=== PATIENT | male | born 1960 | race Caucasian/White ===

== ENCOUNTER → 2017-07-22 | Outpatient (CLI) | payer MEDICARE, OTHER ==
[~2017-07-22] MED LIST: BAYER PO; CALCIUM PO; DOXYCYCLINE HY100 MG PO; DOXYCYCLINE PO; IBUPROFEN400 MG PO; IRON PO; LOSARTAN POTAS100 MG PO; LOSARTAN-HCTZ1 EAC2 PO; MULTI-VITAMIN1 EACH PO; NITROFURANTOIN100 MG PO; NORTRIPTYLINE H25 MG PO; NUEDEXTA 20-101 EACH PO; NYQUIL D COLD177 ML PO; TUSSIN COUGH15 MG PO; VITAMIN B-12 PO; VITAMIN B-121000 MCG PO; VOLTAREN100 GM TOP; [UNRECOGNIZED DRUG - OTHER] PO; [UNRECOGNIZED DRUG - OTHER] PO; [UNRECOGNIZED DRUG - REMARK] PO
--- NOTE | 2017-07-22 08:37 | Diagnostic Imaging Report ---
PROCEDURE:US RETROPERITONEAL ( KIDNEY ). COMPARISON:None. INDICATIONS:Neuromuscular Dysfunction Of Bladder TECHNIQUE: Madden-scale and color sonographic images of the bilateral kidneys and bladder where obtained in transverse and longitudinal planes. FINDINGS: RIGHT KIDNEY: 12 cm in length, cortical thickness 1.8 cm. Cysts: None Solid masses: None Stones: None Hydronephrosis: None Echogenicity: Normal renal cortical echogenicity. LEFT KIDNEY: 11.9 cm in length, cortical thickness 2.1 cm. Cysts: None Solid masses: None Stones: None Hydronephrosis: None. Mild left pelviectasis described on the comparison examination has resolved. Echogenicity: Normal renal cortical echogenicity. Bladder: Incompletely distended with stable mild wall thickening. Right and left ureteral jets are identified. Prostate: 3.4 x 3.4 x 3.6 cm,, estimated volume 22 cc. CONCLUSION: Stable mild bladder wall thickening in keeping with history of neurogenic bladder. Unremarkable sonographic appearance of the kidneys. Dictated by: Braden Thakur M.D. on 07/22/2017 at 8:46 Electronically approved by: Braden Thakur M.D. on 07/22/2017 at 8:46
== END ==
LOC: US 07:42
PROVIDERS: ATTEND Urology
DX: N31.9 Neuromuscular dysfunction of bladder, unspecified (principal)
CPT/HCPCS: 76770

== ENCOUNTER → 2017-07-25 | Day surgery (SDC) | payer MEDICARE, OTHER ==
[~2017-07-25] MED LIST changes: +BELLADONNA/OPIUM 60 MG SUPP PR ONE; +BOTULINUM TOXIN TYPE A 100 UNIT VIAL IM ONE; +CEFTRIAXONE SOD 1 GM VIAL ONE; +DEXAMETHASONE SOD PHOS INJ 4 MG/ML VIAL ONE; +FENTANYL CITRATE/PF 100MCG/2 ML INJ ONE; +GENTAMICIN 80MG/NS 100 ML 100 ML IV ONE; +IOPAMIDOL 610MG/1ML 300 MG/ML VIAL IV ONE; +LIDOCAINE HCL 2% LOCAL INJ 5 ML SDV VIAL INJ ONE; +MIDAZOLAM HCL 2 MG/2 ML VIAL ONE; +ONDANSETRON HCL INJ 2 MG/ML VIAL ONE; +PROPOFOL IV EMULSION 10 MG/ML 20 ML VIAL ONE; +SEVOFLURANE INHAL SOLN 250 ML PEN BTL ONE
--- NOTE | 2017-09-12 04:29 | Operative Report ---
DATE OF PROCEDURE: July 25, 2017 PREOPERATIVE DIAGNOSES 1. Refractory urge incontinence. 2. Urinary tract infections. POSTOPERATIVE DIAGNOSES 1. Refractory urge incontinence. 2. Urinary tract infections. OPERATIONS PERFORMED 1. Cystourethroscopy with bilateral ureteral catheterization and retrograde ureteropyelography (separate procedure performed for the urinary tract infections). 2. Interpretation of retrograde ureteropyelography. 3. Supervision of fluoroscopy. No radiologist present. 4. Cystourethroscopy with transurethral injection of intravesical Botox. ANESTHESIA: General. COMPLICATIONS: None. CLINICAL SUMMARY: Ean Abel is an unfortunate 56-year-old man with a neurogenic bladder. He has refractory urge incontinence. He is managed with intermittent Botox injections. The patient does self-catheterizations at least 5 times per day. He is on nitrofurantoin suppression, which has improved his recurrence of urinary tract infections. The patient is brought to the operating room today for the above procedures. He is aware of the risks of bleeding, infection, injury to adjacent structures, need for additional procedures, and elected to proceed. OPERATIVE PROCEDURE IN DETAIL: Informed consent was verified. Ean Abel was properly identified and taken to the operating room and placed on the cystoscopy table in the supine position. Anesthesia was uneventfully begun. The patient was then carefully and gently repositioned in the dorsal lithotomy position with all pressure points well-padded. His genitalia were prepared and draped in the usual sterile fashion. The 22.5-Armenian cystoscope sheath with the visual obturator in place was atraumatically inserted into the patient's urethra. It was guided down the unremarkable distal urethra to the proximal urethra where there was a wide caliber urethral stricture that does not seem to be as severe as prior. We easily passed the stricture and went through the prostate bed, which was significant for trilobar prostatic hypertrophy with a small median lobe that is growing with visual obstruction. Panendoscopy of the urinary bladder revealed grade 4 trabeculations with a diverticulum noted at the dome. Heavy trabeculations throughout were noted. No suspicious lesions were identified and there were no stones. An 8-Armenian catheter was used to cannulate each ureter and retrograde ureteropyelograms were performed. Interpretation of retrograde ureteropyelography. Contrast was instilled in a retrograde fashion bilaterally. There were no tumors. No stones and no diverticula. Unobstructed drainage was observed bilaterally fluoroscopically. There was minimal fullness of the distal left ureter. Two hundred units of Botox were dissolved in 20 mL of sterile saline. We injected 1 mL aliquots in an even distribution throughout the supratrigonal bladder. The patient's bladder was drained. The cystoscope was withdrawn. A belladonna and opium suppository was placed revealing a 35 g prostate that was smooth, nonfluctuant without any nodules. The patient was then uneventfully reversed from anesthesia and taken to the recovery room in stable condition. There were no complications to the procedure. He tolerated the procedure well. Explicit postoperative instructions were given. Will follow the patient up in the office. Job#: [id number] DANIELLE
== END | disposition home or self-care (01) ==
LOC: OR 05:47
PROVIDERS: ATTEND Urology
DX: N39.41 Urge incontinence (principal); N39.0 Urinary tract infection, site not specified; N32.89 Other specified disorders of bladder; N35.9 Urethral stricture, unspecified; N40.1 Benign prostatic hyperplasia with lower urinary tract symptoms; N13.8 Other obstructive and reflux uropathy; N31.9 Neuromuscular dysfunction of bladder, unspecified; I10 Essential (primary) hypertension; E11.9 Type 2 diabetes mellitus without complications; F32.9 Major depressive disorder, single episode, unspecified; F41.9 Anxiety disorder, unspecified; Z01.810 Encounter for preprocedural cardiovascular examination
CPT/HCPCS: 36415; 52005; 52287; 74420; 82948; 93005; J0587; J0696; J1100; J1580; J2001; J2250; J2405; Q9967

== ENCOUNTER → 2017-12-02 | Day surgery (SDC) | payer MEDICARE, OTHER ==
[~2017-12-02] MED LIST changes: +BELLADONNA/OPIUM 30 MG SUPP RC ONE; -BELLADONNA/OPIUM 60 MG SUPP PR ONE; +DEXTROMETHORPHA PO; +FERROUS SULFAT325 M1 PO; -GENTAMICIN 80MG/NS 100 ML 100 ML IV ONE; +NITROFURANTOIN50 MG PO
--- OUTSIDE RECORDS SUMMARY | 2017-12-02 05:41 | XMS REPORT ---
Author Author [facility] Address Unknown Phone Unavailable Care Team Providers Care Hydrate Thickener Operator Name Role Phone ALEENA MARTINEZ Unavailable Unavailable Problems This patient has no known problems. Allergies, Adverse Reactions, Alerts This patient has no known allergies or adverse reactions. Medications This patient has no known medications. Results Test Description Test Time Test Comments Text Results Atomic Results Result Comments US RENAL RETROPERITONEAL COMP [place] [address] Patient Name: TAPAN OLIVEIRA MR #: [id number] : 1960 Age/Sex: 56/M Req #: [id number] Adm Physician: Ordered by: ALEENA MARTINEZ MD Report #: [id number] Location: Room/Bed: Procedure: [id number] US/US RENAL RETROPERITONEAL COMP Exam Date: Exam Time: REPORT STATUS: Signed PROCEDURE: US RETROPERITONEAL ( KIDNEY ). COMPARISON: None. INDICATIONS: Neuromuscular Dysfunction Of Bladder TECHNIQUE: Madden-scale and color sonographic images of the bilateral kidneys and bladder where obtained in transverse and longitudinal planes. FINDINGS: RIGHT KIDNEY: 12 cm in length, cortical thickness 1.8 cm. Cysts: None Solid masses: None Stones: None Hydronephrosis: None Echogenicity: Normal renal cortical echogenicity. LEFT KIDNEY: 11.9 cm in length, cortical thickness 2.1 cm. Cysts: None Solid masses: None Stones: None Hydronephrosis: None. Mild left pelviectasis described on the comparison examination has resolved. Echogenicity: Normal renal cortical echogenicity. Bladder: Incompletely distended with stable mild wall thickening. Right and left ureteral jets are identified. Prostate: 3.4 x 3.4 x 3.6 cm,, estimated volume 22 cc. CONCLUSION: Stable mild bladder wall thickening in keeping with history of neurogenic bladder. Unremarkable sonographic appearance of the kidneys. Dictated by: Anmol Arnold M.D. on 07/22/2017 at 8:46 Electronically approved by: Anmol Arnold M.D. on 07/22/2017 at 8:46 Dictated By: ANMOL ARNOLD MD 5 Transcribed By: RANDY on 07/22/17845 COPY TO: ALEENA MARTINEZ MD
--- NOTE | 2018-01-14 14:48 | Operative Report ---
DATE OF PROCEDURE: December 02, 2017 PREOPERATIVE DIAGNOSES: 1. Refractory urge incontinence. 2. Urinary tract infections. POSTOPERATIVE DIAGNOSES: 1. Refractory urge incontinence. 2. Urinary tract infections. PROCEDURES PERFORMED: 1. Cystourethroscopy with bilateral ureteral catheterization and retrograde ureteropyelography (separate procedure performed for the urinary tract infections). 2. Interpretation of retrograde ureteropyelography. 3. Supervision of fluoroscopy. No radiologist present. 4. Cystourethroscopy with intravesical injection of Botox. ANESTHESIA: General. COMPLICATIONS: None. CLINICAL SUMMARY: Ean Abel is a 56-year-old man with neurogenic bladder. He has the above preoperative diagnoses. He undergoes daily intermittent catheterizations at least 5 times. He is brought for the above procedures. He is aware of the risks of bleeding, infection, injury to adjacent structures, need for additional procedures and elected to proceed. OPERATIVE PROCEDURE IN DETAIL: Informed consent was verified. Ean Abel was properly identified, taken to the operating room, placed on the cystoscopy table in supine position. Anesthesia was uneventfully begun. The patient was then carefully and gently repositioned in the dorsal lithotomy position with all pressure points well padded. His genitalia were prepared and draped in usual sterile fashion. A 22.5-Zambian cystoscope sheath with visual obturator in place was atraumatically inserted to the patient's urethra. It was guided down the normal distal urethra through a wide caliber probably not clinically significant bulbar urethral stricture. We passed to normal sphincteric region, went through the prostate bed significant for trilobar prostatic hypertrophy with visual obstruction. Panendoscopy of the urinary bladder revealed grade 4 trabeculation with early diverticula formation and severe trabeculations. Panendoscopy of the urinary bladder revealed no suspicious mucosal lesions. No tumors, no stones and no suspicious lesions. An 8-Zambian catheter was used to cannulate each ureter and retrograde ureteropyelograms were performed. Interpretation of retrograde ureteropyelography: Contrast was instilled in retrograde fashion bilaterally. There were no tumors, no stones and no diverticula. Unobstructed drainage was observed bilaterally fluoroscopically. Botox 200 units that were dissolved in 20 mL of sterile saline was then injected in 1 mL aliquots in an even distribution throughout the supratrigonal bladder. There were no complications for this part of the procedure. The patient's bladder was then drained. Cystoscope was withdrawn. The patient was uneventfully reversed from anesthesia and taken to recovery room in stable condition. There were no complications during the procedure. He tolerated the procedure well. Explicit postoperative instructions were given. Will follow the patient up in the office and of course will return the patient in several months to the operating room for another Botox injection. Job#: [id number] MARIA ESTHER
== END | disposition home or self-care (01) ==
LOC: OR 05:38
PROVIDERS: ATTEND Urology
DX: N39.41 Urge incontinence (principal); N39.0 Urinary tract infection, site not specified; N31.9 Neuromuscular dysfunction of bladder, unspecified; N40.1 Benign prostatic hyperplasia with lower urinary tract symptoms; N13.8 Other obstructive and reflux uropathy; N32.89 Other specified disorders of bladder; N32.3 Diverticulum of bladder; I10 Essential (primary) hypertension; I49.3 Ventricular premature depolarization; Z01.810 Encounter for preprocedural cardiovascular examination
CPT/HCPCS: 52005; 52287; 74420; 93005; C1758; J0587; J0696; J1100; J2001; J2250; J2405; Q9967

== ENCOUNTER → 2018-03-06 | Day surgery (SDC) | payer MEDICARE, OTHER ==
[~2018-03-06] MED LIST changes: +BARIATRIC VITAMINS; -BELLADONNA/OPIUM 30 MG SUPP RC ONE; +IOPAMIDOL 300MG/ML 50ML INFUS..BTL IV ONE; -IOPAMIDOL 610MG/1ML 300 MG/ML VIAL IV ONE
[2018-03-06 08:40] VITALS: BP 115/79
--- NOTE | 2018-04-24 00:16 | Operative Report ---
DATE OF PROCEDURE: March 06, 2018 PREOPERATIVE DIAGNOSES 1. Refractory urge incontinence. 2. Urinary tract infections. POSTOPERATIVE DIAGNOSES 1. Refractory urge incontinence. 2. Urinary tract infections. OPERATIONS PERFORMED 1. Cystourethroscopy with bilateral ureteral catheterization and retrograde ureteropyelography (separate procedure performed for the urinary tract infections). 2. Interpretation of retrograde ureteropyelography. 3. Cystourethroscopy with intravesical injection of Botox. ANESTHESIA: General. COMPLICATIONS: None. CLINICAL SUMMARY: Ean Abel is a 57-year-old man with neurogenic bladder. He does intermittent catheterizations 5 times daily. He has a history of urethral stricture disease. He is brought to the operating room for his regularly scheduled Botox. He is aware of the risks of bleeding, infection, injury to adjacent structures, need additional procedures, and elected to proceed. OPERATIVE PROCEDURE IN DETAIL: Informed consent was verified. Ean Abel was properly identified, taken to operating room, placed on the cystoscopy table in supine position. Anesthesia was uneventfully begun. The patient was then carefully and gently repositioned in dorsal lithotomy position with all pressure points well padded. His genitalia were prepared and draped usual sterile fashion. The 22.5-Spanish cystoscope sheath with the visual obturator in place was atraumatically inserted to patient's urethra. It was guided down a normal distal urethra through the proximal urethra, where there was previous stricture, which seemed to be relatively open at this time. We passed a normal sphincteric region, entered through the prostate bed. It was significant for trilobar prostatic hypertrophy with visual obstruction. Panendoscopy of the urinary bladder revealed heavy trabeculations with cellule formation. No suspicious lesions were identified. There were no tumors. There were no stones and there were no true diverticula. A ureteral catheter was used to cannulate each ureter and retrograde ureteropyelographies were performed. Interpretation of retrograde ureteral pyelography: Contrast was instilled in retrograde fashion bilaterally. There were no tumors, no stones, and no diverticula. Unobstructed drainage was observed bilaterally fluoroscopically. J-hooking was noted bilaterally. The 200 units of Botox were dissolved in 20 mL of sterile saline and we proceeded then with injecting 1 mL aliquots of the Botox solution in an even distribution throughout the supratrigonal bladder. The patient's bladder was then drained. The cystoscope was withdrawn and the patient was uneventfully reversed from anesthesia and taken to recovery room in stable condition. There were no complications to the procedure. The patient tolerated the procedure well. Explicit postoperative instructions were given and we will follow the patient up in the office. Job#: [id number] CQ
== END | disposition home or self-care (01) ==
LOC: OR 05:03
PROVIDERS: ATTEND Urology
DX: N39.41 Urge incontinence (principal); N39.0 Urinary tract infection, site not specified; N31.9 Neuromuscular dysfunction of bladder, unspecified; N40.1 Benign prostatic hyperplasia with lower urinary tract symptoms; N13.8 Other obstructive and reflux uropathy; N32.89 Other specified disorders of bladder; I10 Essential (primary) hypertension; R00.1 Bradycardia, unspecified; F41.9 Anxiety disorder, unspecified; Z01.810 Encounter for preprocedural cardiovascular examination; Z98.84 Bariatric surgery status
CPT/HCPCS: 52005; 52287; 74420; 93005; C1758; J0587; J0696; J1100; J2001; J2250; J2405; Q9967

== ENCOUNTER → 2018-06-05 | Day surgery (SDC) | payer MEDICARE, OTHER ==
[~2018-06-05] MED LIST changes: +BELLADONNA/OPIUM 60 MG SUPP PR ONE; -CEFTRIAXONE SOD 1 GM VIAL ONE; +GENTAMICIN 80MG/NS 100 ML 200 ML IV ONE; -IOPAMIDOL 300MG/ML 50ML INFUS..BTL IV ONE; +IOPAMIDOL 610MG/1ML 300 MG/ML VIAL IV ONE
--- OUTSIDE RECORDS SUMMARY | 2018-06-05 05:16 | XMS REPORT | Continuity of Care Document ---
Author Author [facility] Interface Address Unknown Phone Unavailable Problems Problem Status Onset Date Classification Date Reported Comments Source Lateral epicondylitis, right elbow Active Problem 05/08/2018 Marky Pinon Polyarthritis Active Diagnosis 05/08/2018 Marky Noeler Other conditions associated with Lyme disease Active Diagnosis 05/08/2018 Marky Pinon Other fdc drug therapy Active Diagnosis 05/08/2018 Marky Pinon Right elbow pain Active Problem 05/08/2018 Marky Pinon Cervicalgia Active Problem 05/08/2018 Marky Pinon Medications Medication Details Route Status Patient Instructions Ordering Provider Order Date Source Voltaren Gel apply to affected area Transdermal Active 1% Transdermal Four times a day [place] 10/01/2016 Marky Pinon Ibuprofen 1 tablet Orally Active 800 MG Orally Three times a day [place] Marky Noeler Dextromethorphan-Quinidine 1 capsule Orally Active 20-10 MG Orally Once a day [facility] Vitamin B 12 1 Tablet NA Active Once a day [facility] Calcium as directed Orally Active 150 MG Orally [facility] Multivitamin & Mineral 1 Tablet NA Active Once a day [facility] Ferrous Sulfate as directed Orally Active 220 (44 Fe) MG/5ML Orally [facility] Nitrofurantoin-Macrodantin 50 mg 7d one tab orally Active 50 mg orally Once a day [facility] Losartan Potassium 1 Tablet NA Active Once a day [facility] Iron 1 tablet Orally Active 28 MG Orally Once a day [facility] Allergies, Adverse Reactions, Alerts Substance Category Reaction Severity Reaction type Status Date Reported Comments Source N.K.D.A. Adverse Reaction Info Not Available Adverse Reaction Active 05/01/2018 Marky Pinon Immunizations Immunization Date Given Site Status Last Updated Comments Source Results Order Name Results Value Reference Range Date Interpretation Comments Source Vital Signs Vital Sign Value Date Comments Source Weight 200 05/01/2018 Marky Pinon Height 67 05/01/2018 Markycamryn Pinon Temperature Oral (F) 97.8 F 05/01/2018 Marky Pinon Heart Rate 80 05/01/2018 Marky Pinon Diastolic (mm Hg) 80 05/01/2018 Marky Pinon Systolic (mm Hg) 114 05/01/2018 Marky Pinon Weight 201 11/14/2017 Marky Pinon Height 67 11/14/2017 Marky Pinon Temperature Oral (F) 98.2 F 11/14/2017 Marky Pinon Heart Rate 80 11/14/2017 Marky Pinon Diastolic (mm Hg) 86 11/14/2017 Marky Pinon Systolic (mm Hg) 130 11/14/2017 Marky Pinon Weight 196.6 05/14/2017 Marky Pinon Height 67 05/14/2017 Marky Pinon Temperature Oral (F) 98.4 F 05/14/2017 Marky Pinon Heart Rate 80 05/14/2017 Marky Pinon Diastolic (mm Hg) 80 05/14/2017 Marky Pinon Systolic (mm Hg) 128 05/14/2017 Marky Pinon Encounters Location Location Details Encounter Type Encounter Number Reason For Visit Attending Provider ADM Date DC Date Status Source Procedures Procedure Code Date Perfomer Comments Source
--- OUTSIDE RECORDS SUMMARY | 2018-06-05 05:17 | XMS REPORT ---
Author Author Yanni Mena [facility] [employer] Address Unknown Phone Unavailable Care Team Providers Care Feeder/Folder Name Role Phone Yanni Mena Unavailable Allergies, Adverse Reactions, Alerts Substance Reaction Event Type N.K.D.A. Info Not Available Non Drug Allergy Problems Problem Type Condition Code Onset Dates Condition Status Assessment Cervicalgia M54.2 Active Assessment Polyarthritis M13.0 Active Assessment Other fpc (current) drug therapy Z79.899 Active Problem Lateral epicondylitis, right elbow M77.11 Active Problem Polyarthritis M13.0 Active Problem Other conditions associated with Lyme disease A69.29 Active Problem Other fpc (current) drug therapy Z79.899 Active Assessment Other conditions associated with Lyme disease A69.29 Active Problem Right elbow pain M25.521 Active Problem Cervicalgia M54.2 Active Medications Medication Code System Code Instructions Start Date End Date Status Dosage Ibuprofen ND 49357229657 800 MG Orally Three times a day Active 1 tablet Dextromethorphan-Quinidine ND 11712644208 20-10 MG Orally Once a day Active 1 capsule Vitamin B 12 ND 23045395034 Once a day Active 1 Tablet Calcium ND 17186599791 150 MG Orally Active as directed Voltaren Gel NDC 0 1% Transdermal Four times a day October 01, 2016 Active apply to affected area Multivitamin & Mineral ND 01797320736 Once a day Active 1 Tablet Ferrous Sulfate ND 31037740759 220 (44 Fe) MG/5ML Orally Active as directed Nitrofurantoin-Macrodantin 50 mg 7d NDC 0 50 mg orally Once a day Active one tab Losartan Potassium ND 56789386278 Once a day Active 1 Tablet Vital Signs Date/Time: November 14, 2017 BMI 31.48 Index Weight 201 lbs Height 67 in Temperature 98.2 F Cardiac Monitoring Heart Rate 80 /min Blood Pressure Diastolic 86 mm Hg Blood Pressure Systolic 130 mm Hg Results No Known Results Summary Purpose [employer]Clinical[employer] Submission
--- OUTSIDE RECORDS SUMMARY | 2018-06-05 05:17 | XMS REPORT ---
Author Author Yanni Mena Organization [employer] Address Unknown Phone Unavailable Care Team Providers Care Wind Turbine Electrical Engineer Name Role Phone Yanni Mena Unavailable Allergies, Adverse Reactions, Alerts Substance Reaction Event Type N.K.D.A. Info Not Available Non Drug Allergy Problems Problem Type Condition Code Onset Dates Condition Status Assessment Other snf (current) drug therapy Z79.899 Active Assessment Other conditions associated with Lyme disease A69.29 Active Assessment Polyarthritis M13.0 Active Problem Lateral epicondylitis, right elbow M77.11 Active Problem Polyarthritis M13.0 Active Problem Other conditions associated with Lyme disease A69.29 Active Problem Other snf (current) drug therapy Z79.899 Active Problem Right elbow pain M25.521 Active Problem Cervicalgia M54.2 Active Medications Medication Code System Code Instructions Start Date End Date Status Dosage Calcium ND 92528944535 150 MG Orally Active as directed Dextromethorphan-Quinidine ND 54104688388 20-10 MG Orally Once a day Active 1 capsule Nitrofurantoin-Macrodantin 50 mg 7d NDC 0 50 mg orally Once a day Active one tab Ibuprofen NDC 85544350364 800 MG Orally Three times a day Active 1 tablet Losartan Potassium ND 01526073240 Once a day Active 1 Tablet Vitamin B 12 ND 62603174118 Once a day Active 1 Tablet Voltaren Gel NDC 0 1% Transdermal Four times a day October 01, 2016 Active apply to affected area Ferrous Sulfate ND 60517808036 220 (44 Fe) MG/5ML Orally Active as directed Multivitamin & Mineral ND 38663837955 Once a day Active 1 Tablet Vital Signs Date/Time: May 01, 2018 BMI 31.32 Index Weight 200 lbs Height 67 in Temperature 97.8 F Cardiac Monitoring Heart Rate 80 /min Blood Pressure Diastolic 80 mm Hg Blood Pressure Systolic 114 mm Hg Results No Known Results Summary Purpose [employer]Works Submission
--- OUTSIDE RECORDS SUMMARY | 2018-06-05 05:17 | XMS REPORT ---
Author Author Simone Pinon Organization [employer] Address Unknown Phone Unavailable Care Team Providers Care Eastern Philosophy Professor Name Role Phone Simone Pinon CP Unavailable Allergies No Known Allergies Problems Problem Type Condition Code Onset Dates Condition Status Problem Lateral epicondylitis, right elbow M77.11 Active Problem Polyarthritis M13.0 Active Problem Other conditions associated with Lyme disease A69.29 Active Problem Other vegetable buncher (current) drug therapy Z79.899 Active Assessment Polyarthritis M13.0 Active Problem Right elbow pain M25.521 Active Problem Cervicalgia M54.2 Active Medications Medication Code System Code Instructions Start Date End Date Status Dosage Voltaren Gel NDC 0 1% Transdermal Four times a day October 01, 2016 Feb 08, 2018 Active apply to affected area Results No Known Results Summary Purpose eClinicalWorks Submission
--- OUTSIDE RECORDS SUMMARY | 2018-06-05 05:17 | XMS REPORT ---
Author Author Yanni Mena [facility] e[employer] Address Unknown Phone Unavailable Care Team Providers Care Turbine Blade Assembler Name Role Phone Yanni Mena Unavailable Allergies, Adverse Reactions, Alerts Substance Reaction Event Type N.K.D.A. Info Not Available Non Drug Allergy Problems Problem Type Condition Code Onset Dates Condition Status Assessment Cervicalgia M54.2 Active Assessment Polyarthritis M13.0 Active Assessment Other terminal worker (current) drug therapy Z79.899 Active Problem Lateral epicondylitis, right elbow M77.11 Active Problem Polyarthritis M13.0 Active Problem Other conditions associated with Lyme disease A69.29 Active Problem Other fci (current) drug therapy Z79.899 Active Assessment Other conditions associated with Lyme disease A69.29 Active Problem Right elbow pain M25.521 Active Problem Cervicalgia M54.2 Active Medications Medication Code System Code Instructions Start Date End Date Status Dosage Dextromethorphan-Quinidine ND 37807855887 20-10 MG Orally Once a day Active 1 capsule Iron ND 90980075919 28 MG Orally Once a day Active 1 tablet Losartan Potassium ND 29529966249 Once a day Active 1 Tablet Nitrofurantoin-Macrodantin 50 mg 7d NDC 0 50 mg orally Once a day Active one tab Vitamin B 12 ND 85489977588 Once a day Active 1 Tablet Ibuprofen ND 55853126984 800 MG Orally Three times a day Active 1 tablet Calcium ND 36199385746 150 MG Orally Active as directed Multivitamin & Mineral ND 26152186911 Once a day Active 1 Tablet Voltaren Gel NDC 0 1% Transdermal Four times a day October 01, 2016 Feb 08, 2018 Active apply to affected area Vital Signs Date/Time: May 14, 2017 BMI 30.79 Index Weight 196.6 lbs Height 67 in Temperature 98.4 F Cardiac Monitoring Heart Rate 80 /min Blood Pressure Diastolic 80 mm Hg Blood Pressure Systolic 128 mm Hg Results No Known Results Summary Purpose eClinicalWorks Submission
[2018-06-05 06:34] LABS: ANION GAP 12.2 mmol/L (8-16); BLOOD UREA NITROGEN 12 mg/dL (7-26); BUN/CREATININE RATIO 15 (6-25); CALCIUM 8.7 mg/dL (8.4-10.2); CARBON DIOXIDE 27 mmol/L (22-29); CHLORIDE 106 mmol/L (98-107); EST GLOMERULAR FILTRATION RATE > 60 ML/MIN (60-); GLUCOSE 109 mg/dL (74-118); POTASSIUM 4.2 mmol/L (3.5-5.1); SODIUM 141 mmol/L (136-145)
[2018-06-05 08:10] VITALS: BP 123/76
--- NOTE | 2018-06-05 08:18 | Operative Report ---
DATE OF PROCEDURE: June 05, 2018 PREOPERATIVE DIAGNOSES: 1. Refractory urge incontinence. 2. Urinary tract infections. POSTOPERATIVE DIAGNOSES: 1. Refractory urge incontinence. 2. Urinary tract infections. OPERATIONS PERFORMED: 1. Cystourethroscopy with bilateral ureteral catheterization and retrograde ureteropyelography (separate procedure performed for the urinary tract infections). 2. Interpretation of retrograde ureteropyelography. 3. Cystourethroscopy with intravesical Botox injection. ANESTHESIA: General. COMPLICATIONS: None. CLINICAL SUMMARY: Ean Abel is a 57-year-old man with a neurogenic bladder. He has a severely hyperreflexic bladder, and without Botox, he leaks between his q.4h. self catheterizations. The patient has had recurrent urinary tract infection and has been managed with suppression antibiotics without any known complications. The patient is here for his scheduled quarterly Botox injections. He is aware of the risks of bleeding, infection, injury to adjacent structures, need for additional procedures, and elected to proceed. OPERATIVE PROCEDURE IN DETAIL: Informed consent was verified. Ean Abel was properly identified, taken to the operating room, and placed on the cystoscopy table in supine position. Anesthesia was uneventfully begun. The patient was then carefully and gently repositioned in dorsal lithotomy position. His genitalia were prepared and draped in usual sterile fashion. A 22.5-Japanese cystoscope sheath with the visual obturator in place was atraumatically inserted into patient's urethra. It was guided down the unremarkable distal urethra, through wide caliber stricture region and the bulbar region, which was actually more open than it was last time. We went through the prostate bed, which was significant for trilobar prostatic hypertrophy with a median lobe present. We entered the patient's bladder, which was significant for grade 4 trabeculations with cellules throughout and small diverticula as well. The appearance of the bladder has worsened during the years I have known this patient despite Botox therapy. There were no suspicious lesions. There were no tumors. There were no stones. Normally positioned and configured ureteral orifices were identified. An 8-Japanese catheter was used to cannulate each ureter, and retrograde ureteral pyelograms were performed. Interpretation of retrograde ureteropyelography: Contrast was instilled in retrograde fashion bilaterally. There were no tumors, no stones, and no diverticula. Unobstructed drainage was observed bilaterally fluoroscopically. The 200 units of Botox were dissolved in 20 mL of saline. We injected 1 mL aliquots in an even distribution throughout the supratrigonal bladder. The patient's bladder was then drained. The cystoscope was withdrawn. A belladonna and opium suppository was placed revealing a prostate that is 40 g in size, smooth, non-fluctuant, and without any nodules. The patient was then uneventfully reversed from anesthesia and taken to the recovery room in stable condition. Plans will be to follow the patient up in approximately 2 months, and following that plan, an another Botox injection 3 months from now. Job#: [id number]
== END | disposition home or self-care (01) ==
LOC: OR 05:13
PROVIDERS: ATTEND Urology
DX: N31.9 Neuromuscular dysfunction of bladder, unspecified (principal); N39.41 Urge incontinence; N39.0 Urinary tract infection, site not specified; N40.0 Benign prostatic hyperplasia without lower urinary tract symptoms; N32.89 Other specified disorders of bladder; N32.3 Diverticulum of bladder; I10 Essential (primary) hypertension; F32.9 Major depressive disorder, single episode, unspecified
CPT/HCPCS: 36415; 52005; 52287; 74420; 80048; 82948; C1758; J0587; J1100; J1580; J2001; J2250; J2405; J2704; Q9967

== ENCOUNTER → 2018-07-31 | Outpatient (CLI) | payer MEDICARE, OTHER ==
[~2018-07-31] MED LIST changes: -BELLADONNA/OPIUM 60 MG SUPP PR ONE; -BOTULINUM TOXIN TYPE A 100 UNIT VIAL IM ONE; -DEXAMETHASONE SOD PHOS INJ 4 MG/ML VIAL ONE; -FENTANYL CITRATE/PF 100MCG/2 ML INJ ONE; -GENTAMICIN 80MG/NS 100 ML 200 ML IV ONE; -IOPAMIDOL 610MG/1ML 300 MG/ML VIAL IV ONE; -LIDOCAINE HCL 2% LOCAL INJ 5 ML SDV VIAL INJ ONE; -MIDAZOLAM HCL 2 MG/2 ML VIAL ONE; -ONDANSETRON HCL INJ 2 MG/ML VIAL ONE; -PROPOFOL IV EMULSION 10 MG/ML 20 ML VIAL ONE; -SEVOFLURANE INHAL SOLN 250 ML PEN BTL ONE
--- NOTE | 2018-07-31 10:08 | Diagnostic Imaging Report ---
EXAM: Renal Ultrasound INDICATION: Neuromuscular dysfunction of the bladder. COMPARISON: Renal ultrasound 02/16/2016. TECHNIQUE: Transverse and longitudinal images of the kidneys and bladder were obtained. FINDINGS: Right Kidney: Length: Measures 11.2 x 6.0 x 6.1 cm Appearance: Normal echogenicity. Collecting system: No hydronephrosis Stones: None Cyst/Mass: None Left Kidney: Length: Measures 12.0 x 5.9 x 6.3 cm Appearance: Normal echogenicity. Collecting system: Mild left pelviectasis without hydronephrosis, unchanged from ultrasound on 02/16/2016. Stones: None Cyst/Mass: None Bladder: The bladder is mildly thick walled with increased trabeculations, unchanged. Bilateral ureteral jets are seen. IMPRESSION: Stable appearance of the bladder, consistent with known neurogenic bladder. Mild left pelviectasis, unchanged. No evidence of hydronephrosis or stone. Signed by: Dr. Candelaria Alvares MD on 07/31/2018 10:04 AM
== END ==
LOC: US 08:23
PROVIDERS: ATTEND Urology
DX: N31.9 Neuromuscular dysfunction of bladder, unspecified (principal)
CPT/HCPCS: 76770

== ENCOUNTER → 2018-08-29 | Day surgery (SDC) | payer MEDICARE, OTHER ==
[2018-08-28 12:53] LABS: ANION GAP 11.3 mmol/L (8-16); BLOOD UREA NITROGEN 14 mg/dL (7-26); BUN/CREATININE RATIO 16 (6-25); CALCIUM 8.8 mg/dL (8.4-10.2); CARBON DIOXIDE 27 mmol/L (22-29); CHLORIDE 104 mmol/L (98-107); CREATININE, SERUM 0.85 mg/dL (0.72-1.25); EST GLOMERULAR FILTRATION RATE > 60 ML/MIN (60-); GLUCOSE 93 mg/dL (74-118); POTASSIUM 4.3 mmol/L (3.5-5.1); SODIUM 138 mmol/L (136-145)
[~2018-08-29] MED LIST changes: +BELLADONNA/OPIUM 30 MG SUPP RC ONE; +BOTULINUM TOXIN TYPE A 100 UNIT VIAL IM ONE; +CEFTRIAXONE SOD 1 GM/NS 50 ML 50 ML IV ONE; +DEXAMETHASONE SOD PHOS INJ 4 MG/ML VIAL ONE; +FENTANYL CITRATE/PF 100MCG/2 ML INJ ONE; +GENTAMICIN 80MG/NS 100 ML 100 ML IV ONE; +IOPAMIDOL 610MG/1ML 300 MG/ML VIAL IV ONE; +LIDOCAINE HCL 2% LOCAL INJ 5 ML SDV VIAL INJ ONE; +MIDAZOLAM HCL 2 MG/2 ML VIAL ONE; +ONDANSETRON HCL INJ 2MG/ML 2ML 2 MG/ML VIAL ONE; +PROPOFOL IV EMULSION 10 MG/ML 20 ML VIAL ONE; +SEVOFLURANE INHAL SOLN 250 ML PEN BTL ONE
--- OUTSIDE RECORDS SUMMARY | 2018-08-29 05:13 | XMS REPORT | Continuity of Care Document ---
Author Author [facility] Interface Address Unknown Phone Unavailable Problems Problem Status Onset Date Classification Date Reported Comments Source Lateral epicondylitis, right elbow Active Problem 05/08/2018 Marky Pinon Polyarthritis Active Diagnosis 05/08/2018 Marky Noeler Other conditions associated with Lyme disease Active Diagnosis 05/08/2018 Marky Pinon Other residential drug therapy Active Diagnosis 05/08/2018 Marky Pinon Right elbow pain Active Problem 05/08/2018 Marky Pinon Cervicalgia Active Problem 05/08/2018 Marky Noeler Medications Medication Details Route Status Patient Instructions Ordering Provider Order Date Source Voltaren Gel apply to affected area Transdermal Active 1% Transdermal Four times a day Mena 10/01/2016 Marky Pinon Dextromethorphan-Quinidine 1 capsule Orally Active 20-10 MG Orally Once a day [place] Marky Pinon Iron 1 tablet Orally Active 28 MG Orally Once a day [place] Marky Pinno Losartan Potassium 1 Tablet NA Active Once a day [place] Marky Pinon Nitrofurantoin-Macrodantin 50 mg 7d one tab orally Active 50 mg orally Once a day [place] Marky Pinon Vitamin B 12 1 Tablet NA Active Once a day [place] Marky Pinon Ibuprofen 1 tablet Orally Active 800 MG Orally Three times a day [place] Marky Pinon Calcium as directed Orally Active 150 MG Orally [place] Marky Pinon Multivitamin & Mineral 1 Tablet NA Active Once a day [place] Marky Pinon Ferrous Sulfate as directed Orally Active 220 (44 Fe) MG/5ML Orally [place] Marky Pinon Allergies, Adverse Reactions, Alerts Substance Category Reaction [...] 200 05/01/2018 Marky Pinon Height 67 05/01/2018 Marky Pinon Temperature Oral (F) 97.8 F 05/01/2018 [...]
[2018-08-29 08:10] VITALS: BP 133/83
--- NOTE | 2018-09-01 10:47 | Operative Report ---
DATE OF PROCEDURE: 08/29/2018 SURGEON: Josue Brooks MD PREOPERATIVE DIAGNOSES: 1. Refractory urge incontinence. 2. Urinary tract infections. POSTOPERATIVE DIAGNOSES: 1. Refractory urge incontinence. 2. Urinary tract infections. OPERATIONS PERFORMED: 1. Cystourethroscopy with bilateral ureteral catheterization and retrograde ureteropyelography (separate procedure performed for the urinary tract infections). 2. Interpretation of retrograde ureteropyelography. 3. Cystourethroscopy with intravesical injection of Botox (separate procedure performed for the urinary incontinence). ANESTHESIA: General. COMPLICATIONS: None. CLINICAL SUMMARY: Ean Abel is a complicated 57-year-old man who had Lyme disease, this left him with a neurogenic bladder. He has no overactive hyperreflexic bladder, but also has detrusor sphincter dyssynergia and is in chronic urinary retention. He catheterizes himself 5 times daily. The patient also has a history of urethral stricture disease. He is brought for the above procedures. He is aware of the risks of bleeding, infection, injury to adjacent structures, need for additional procedures and elected to proceed. OPERATIVE PROCEDURE IN DETAIL: Informed consent was verified. Ean Abel was properly identified, taken to the operating room, placed on the cystoscopy table in supine position. Anesthesia was uneventfully begun. The patient was then carefully gently repositioned in dorsal lithotomy position with all pressure points well padded. His genitalia were prepared and draped in usual sterile fashion. The 22.5-Puerto Rican cystoscope sheath with the visual obturator in place was atraumatically inserted in the patient's urethra. It was guided down the unremarkable urethra through the bulbar region where previous stricture did not recur to the same extent. We passed through the prostate bed, which was significant for visually obstructing trilobar BPH with a median lobe present. We entered the bladder and the bladder was drained. Panendoscopy revealed heavy trabeculations, but no tumors, no stones, no suspicious mucosal lesions were identified. An 8-Pu[place] Rican catheter was used to cannulate each ureter and retrograde ureteropyelogram was performed. Interpretation of retrograde ureteropyelography: Contrast was instilled in retrograde fashion bilaterally. There were no tumors, no stones, and no diverticula. Unobstructed drainage was observed bilaterally fluoroscopically. 200 units of Botox were dissolved in 20 mL of sterile saline, 1 mL aliquots were then injected in an even distribution throughout the supratrigonal bladder. The bladder was drained and cystoscope was withdrawn. A belladonna and opium suppository were placed revealing an enlarged prostate that was smooth and non-fluctuant without any nodules. The patient was uneventfully reversed from anesthesia and taken to recovery room in stable condition. There were no complications to the procedure. The patient tolerated the procedure well. Explicit postoperative instructions were given. We will follow the patient up in the office. Josue MD Cecilia OH/MODL /[id number] cc: Peter Escobedo MD
== END | disposition home or self-care (01) ==
LOC: OR 05:09
PROVIDERS: ATTEND Urology
DX: N39.41 Urge incontinence (principal); N39.0 Urinary tract infection, site not specified; A69.22 Other neurologic disorders in Lyme disease; N40.1 Benign prostatic hyperplasia with lower urinary tract symptoms; N13.8 Other obstructive and reflux uropathy; N32.89 Other specified disorders of bladder; D64.9 Anemia, unspecified; I10 Essential (primary) hypertension; R00.1 Bradycardia, unspecified; E11.9 Type 2 diabetes mellitus without complications; M19.90 Unspecified osteoarthritis, unspecified site; F32.9 Major depressive disorder, single episode, unspecified; Z01.810 Encounter for preprocedural cardiovascular examination; Z01.812 Encounter for preprocedural laboratory examination; Z96.651 Presence of right artificial knee joint; Z86.73 Personal history of transient ischemic attack (TIA), and cerebral infarction without residual deficits
CPT/HCPCS: 36415; 52005; 52287; 74420; 80048; 93005; C1758; J0587; J0696; J1100; J1580; J2001; J2250; J2405; J2704; Q9967

== ENCOUNTER → 2018-12-18 | Day surgery (SDC) | payer MEDICARE, OTHER ==
[2018-12-15 14:34] LABS: ANION GAP 11.9 mmol/L (8-16); BLOOD UREA NITROGEN 11 mg/dL (7-26); BUN/CREATININE RATIO 13 (6-25); CALCIUM 9.1 mg/dL (8.4-10.2); CARBON DIOXIDE 28 mmol/L (22-29); CHLORIDE 103 mmol/L (98-107); CREATININE, SERUM 0.82 mg/dL (0.72-1.25); EST GLOMERULAR FILTRATION RATE > 60 ML/MIN (60-); GLUCOSE 84 mg/dL (74-118); POTASSIUM 3.9 mmol/L (3.5-5.1); SODIUM 139 mmol/L (136-145)
[~2018-12-18] MED LIST changes: +B&O 60MG R/S 60 MG SUPP PR ONE; -BELLADONNA/OPIUM 30 MG SUPP RC ONE
--- OUTSIDE RECORDS SUMMARY | 2018-12-18 05:50 | XMS REPORT ---
Author Author Yanni Mena Organization [employer] Address Unknown Phone Unavailable Care Team Providers Care Varnishing Machine Operator Name Role Phone Yanni Mena Unavailable Allergies, Adverse Reactions, Alerts Substance Reaction Event Type N.K.D.A. Info Not Available Non Drug Allergy Problems Problem Type Condition Code Onset Dates Condition Status Assessment Polyarthritis M13.0 Active Assessment Other conditions associated with Lyme disease A69.29 Active Assessment Other usp (current) drug therapy Z79.899 Active Problem Lateral epicondylitis, right elbow M77.11 Active Problem Polyarthritis M13.0 Active Problem Other conditions associated with Lyme disease A69.29 Active Problem Other usp (current) drug therapy Z79.899 Active Problem Right elbow pain M25.521 Active Problem Cervicalgia M54.2 Active Medications Medication Code System Code Instructions Start Date End Date Status Dosage Multivitamin & Mineral ND 31299246693 Once a day Active 1 Tablet Vitamin B 12 ND 79372820538 Once a day Active 1 Tablet Ferrous Sulfate ND 49894566697 220 (44 Fe) MG/5ML Orally Active as directed Ibuprofen ND 88659079115 800 MG Orally Three times a day Active 1 tablet Losartan Potassium ND 83924239054 Once a day Active 1 Tablet Nitrofurantoin-Macrodantin 50 mg 7d NDC 0 50 mg orally Once a day Active one tab Dextromethorphan-Quinidine ND 04439334312 20-10 MG Orally Once a day Active 1 capsule Voltaren Gel NDC 0 1% Transdermal Four times a day October 29, 2018 Active apply to affected area Calcium NDC 77468353704 150 MG Orally Active as directed Vital Signs Date/Time: October 29, 2018 BMI 31 Index Weight 197.8 lbs Height 67 in Temperature 98.1 F Cardiac Monitoring Heart Rate 76 /min Blood Pressure Diastolic 80 mm Hg Blood Pressure Systolic 116 mm Hg Results No Known Results Summary Purpose [employer] Submission
--- OUTSIDE RECORDS SUMMARY | 2018-12-18 05:50 | XMS REPORT ---
Author Author Simone Pinon Organization [employer] Address Unknown Phone Unavailable Care Team Providers Care Technical Stenographer Name Role Phone Simone Pinon CP Unavailable Allergies No Known Allergies Problems Problem Type Condition Code Onset Dates Condition Status Problem Lateral epicondylitis, right elbow M77.11 Active Problem Polyarthritis M13.0 Active Problem Other conditions associated with Lyme disease A69.29 Active Problem Other electrical wirer (current) drug therapy Z79.899 Active Problem Right elbow pain M25.521 Active Problem Cervicalgia M54.2 Active Medications No Known Medications Results No Known Results Summary Purpose [employer] Submission
--- OUTSIDE RECORDS SUMMARY | 2018-12-18 05:50 | XMS REPORT | Continuity of Care Document ---
Author [facility] Address Unknown Phone Unavailable Problems Problem Status Onset Date Classification Date Reported Comments Source Lateral epicondylitis, right elbow Active Problem 10/31/2018 Marky Pinon Polyarthritis Active Diagnosis 10/31/2018 Marky Noeler Other conditions associated with Lyme disease Active Diagnosis 10/31/2018 Marky Pinon Other fpc drug therapy Active Diagnosis 10/31/2018 Marky Pinon Right elbow pain Active Problem 10/31/2018 Marky Pinon Cervicalgia Active Problem 10/31/2018 Marky Zi Medications Medication Details Route Status Patient Instructions Ordering Provider Order Date Source Voltaren Gel apply to affected area Transdermal Active 1% Transdermal Four times a day Mena 10/29/2018 Marky Pinon Voltaren Gel apply to affected area Transdermal Active 1% Transdermal Four times a day Mena 10/01/2016 Marky Pinon Dextromethorphan-Quinidine 1 capsule Orally Active 20-10 MG Orally [facility] Iron 1 tablet Orally Active 28 MG Orally Once a day [place] Marky Pinon Losartan Potassium 1 Tablet NA Active Once a day [place] Marky Pinon Nitrofurantoin-Macrodantin 50 mg 7d one tab orally Active 50 mg orally Once a day [facility] Vitamin B 12 1 Tablet NA Active Once a day [facility] Ibuprofen 1 tablet Orally Active 800 MG Orally Three times a day [place] Marky Pinon Calcium as directed Orally Active 150 MG Orally [place] Marky Pinon Multivitamin & Mineral 1 Tablet NA Active Once a day [place] [facility] Ferrous Sulfate as directed Orally Active 220 (44 Fe) MG/5ML Orally [place] Marky Pinon Allergies, Adverse Reactions, Alerts Substance Category Reaction Severity Reaction type Status Date Reported Comments Source N.K.D.A. Adverse Reaction Info Not Available Adverse Reaction Active 10/29/2018 Marky Pinon Immunizations Immunization Date Given Site Status Last Updated Comments Source Results Order Name Results Value Reference Range Date Interpretation Comments Source Vital Signs Vital Sign Value Date Comments Source Weight 197.8 10/29/2018 Marky Pinon Height 67 10/29/2018 Marky Pinon Temperature Oral (F) 98.1 F 10/29/2018 Marky Pinon Heart Rate 76 10/29/2018 Marky Pinon Diastolic (mm Hg) 80 10/29/2018 Marky Pinon Systolic (mm Hg) 116 10/29/2018 Marky Pinon Weight 200 05/01/2018 Marky Pinon Height 67 [...]
[2018-12-18 08:48] VITALS: BP 134/86
--- NOTE | 2019-01-29 14:19 | Operative Report ---
DATE OF PROCEDURE: 12/18/2018 SURGEON: Josue Brooks MD PREOPERATIVE DIAGNOSES: 1. Refractory urge incontinence. 2. Urethral stricture disease. 3. Urinary tract infections. POSTOPERATIVE DIAGNOSES: 1. Refractory urge incontinence. 2. Urethral stricture disease. 3. Urinary tract infections. OPERATION PERFORMED: 1. Cystourethroscopy with calibration and dilation of urethral stricture (separate procedure performed for the diagnosis of stricture). 2. Cystourethroscopy with bilateral ureteral catheterization and retrograde ureteropyelography (separate procedure performed for the urinary tract infections). 3. Interpretation of retrograde ureteropyelography. 4. Cystourethroscopy with intravesical injection of Botox (separate procedure performed for the refractory urge incontinence). ANESTHESIA: General. COMPLICATIONS: None. CLINICAL SUMMARY: Ean Abel is a 57-year-old male with Lyme disease, he has a neurogenic bladder. He undergoes intermittent catheterizations five times daily and as needed. He has had a history of urinary tract infections. He also has refractory urge incontinence and unless he gets this Botox intravesically injected on a regular basis. He will have urge incontinence in between catheterizations. He is aware of the risks of bleeding, infection, injury to adjacent structures, need for additional procedures and elected to proceed. OPERATIVE PROCEDURE IN DETAIL: Informed consent was verified. Ean Abel was properly identified, taken to the operating room, placed on the cystoscopy table in supine position. Anesthesia was uneventfully begun. The patient was then carefully gently repositioned in dorsal lithotomy position with all pressure points well padded. His genitalia were prepared and draped in usual sterile fashion. A 22.5-Zambian cystoscope sheath with visual obturator in place, was atraumatically inserted into the patient's urethra. It was guided on a normal distal urethra to the bulbar region, where there was urethral stricture. We calibrated the stricture to approximately 16-Zambian in size and gently dilated to 22.5-Zambian in size to the size of the sheath. We then went through the normal sphincteric region went through the prostate bed, which was significant for trilobar prostatic hypertrophy with a small intravesical median lobe. Visual obstruction was noted. We entered the patient's bladder. Panendoscopy revealed heavy trabeculations, but no tumors, no stones, no suspicious lesions and no true diverticula were identified. An 8-Zambian catheter was used to cannulate each ureter and retrograde ureteral pyelograms were performed. Interpretation of retrograde ureteropyelography contrast was instilled in retrograde fashion bilaterally. There were no tumors, no stones, and no diverticula. Unobstructed drainage was observed bilaterally fluoroscopically. There was some tortuosity of the distal ureters. A 200 units of Botox were dissolved in 20 mL of sterile saline. There were then injected in 1 mL aliquots in an even distribution throughout the supratrigonal bladder. The patient's bladder was then drained. The cystoscope was withdrawn. Belladonna and opium suppository were placed. The patient was uneventfully reversed from anesthesia and taken to recovery room in stable condition. There were no complications to the procedure. He tolerated the procedure well. Explicit postoperative instructions were given. We will follow the patient up in the office. MD NYASIA Griffith/MODAlejandro /[id number]
== END | disposition home or self-care (01) ==
LOC: OR 05:41
PROVIDERS: ATTEND Urology
DX: N39.41 Urge incontinence (principal); N35.912 Unspecified bulbous urethral stricture, male; N39.0 Urinary tract infection, site not specified; N31.9 Neuromuscular dysfunction of bladder, unspecified; N40.0 Benign prostatic hyperplasia without lower urinary tract symptoms; N32.89 Other specified disorders of bladder; N13.8 Other obstructive and reflux uropathy; E11.9 Type 2 diabetes mellitus without complications; I10 Essential (primary) hypertension; R00.1 Bradycardia, unspecified; F41.9 Anxiety disorder, unspecified; Z01.810 Encounter for preprocedural cardiovascular examination; Z01.812 Encounter for preprocedural laboratory examination
CPT/HCPCS: 36415 ×2; 52005; 52287; 74420; 80048; 82948; 93005; C1758; J0587; J0696; J1100; J1580; J2001; J2250; J2405; J2704; Q9967; J3010

== ENCOUNTER → 2019-03-19 | Day surgery (SDC) | payer MEDICARE, OTHER ==
[~2019-03-19] MED LIST changes: -FENTANYL CITRATE/PF 100MCG/2 ML INJ ONE; -GENTAMICIN 80MG/NS 100 ML 100 ML IV ONE
--- OUTSIDE RECORDS SUMMARY | 2019-03-19 05:26 | XMS REPORT | Continuity of Care Document ---
Author Author [facility] [employer] Address Unknown Phone Unavailable Care Team Providers Care Sewing Machines Salesperson Name Role Phone [employer] Information [email or web address] Unavailable Unavailable Problems Problem Status Onset Date Classification Date Reported Comments Source Lateral epicondylitis, right elbow Active Problem 02/25/2019 Marky Pinon Polyarthritis Active Problem 02/25/2019 Marky Pinon Other conditions associated with Lyme disease Active Problem 02/25/2019 Marky Pinon Other longterm (current) drug therapy Active Problem 02/25/2019 Marky Pinon Right elbow pain Active Problem 02/25/2019 Marky Pinon Cervicalgia Active Problem 02/25/2019 Marky Pinon Medications Medication Details Route Status Patient Instructions Ordering Provider Order Date Source Voltaren Gel apply to affected area Transdermal Active 1% Transdermal Four times a day Mena 10/29/2018 Marky Pinon Voltaren Gel apply to affected area Transdermal Active 1% Transdermal Four times a day [place] 10/01/2016 Marky Pinon Multivitamin & Mineral 1 Tablet NA Active Once a day [place] Marky Pinon Vitamin B 12 1 Tablet NA Active Once a day [place] Marky Pinon Ferrous Sulfate as directed Orally Active 220 (44 Fe) MG/5ML Orally [place] Marky Pinon Ibuprofen 1 tablet Orally Active 800 MG Orally Three times a day [place] Marky Pinon Losartan Potassium 1 Tablet NA Active Once a day [place] Marky Pinon Nitrofurantoin-Macrodantin 50 mg 7d one tab orally Active 50 mg orally Once a day [place] Marky Pinon Dextromethorphan-Quinidine 1 capsule Orally Active 20-10 MG Orally Once a day [facility] Pinon Calcium as directed Orally Active 150 MG Orally [place] Marky Pinon Iron 1 tablet Orally Active 28 MG Orally Once a day [place] Marky Pinon Allergies, Adverse Reactions, Alerts Substance Category Reaction Severity Reaction type Status Date Reported Comments Source N.K.D.A. Adverse Reaction Info Not Available Adverse Reaction Active 10/29/2018 Marky Pinon Immunizations No Data Provided for This Section Results No Data Provided for This Section Pathology Reports No Data Provided for This Section Diagnostic Reports No Data Provided for This Section Consultation Notes No Data Provided for This Section Discharge Summaries No Data Provided for This Section History and Physicals No Data Provided for This Section Vital Signs Vital Sign Value Date Comments [...] 130 11/14/2017 Marky Pinon Weight 196.6 05/14/2017 Amrky Pinon Height 67 05/14/2017 Marky Pinon Temperature Oral (F) 98.4 F 05/14/2017 Marky Pinon Heart Rate 80 05/14/2017 Marky Pinon Diastolic (mm Hg) 80 05/14/2017 Marky Pinon Systolic (mm Hg) 128 05/14/2017 Marky Pinon Encounters No Data Provided for This Section Procedures No Data Provided for This Section Assessment and Plan No Data Provided for This Section Plan of Care No Data Provided for This Section Social History No Data Provided for This Section Family History No Data Provided for This Section Advance Directives No Data Provided for This Section Functional Status No Data Provided for This Section
--- OUTSIDE RECORDS SUMMARY | 2019-03-19 05:26 | XMS REPORT ---
Author Author Simone Pinon Organization [employer] Address Unknown Phone Unavailable Care Team Providers Care Senior Business Broker Name Role Phone Simone Pinon CP Unavailable Allergies No Known Allergies Problems Problem Type Condition Code Onset Dates Condition Status Problem Lateral epicondylitis, right elbow M77.11 Active Problem Polyarthritis M13.0 Active Problem Other conditions associated with Lyme disease A69.29 Active Problem Other long term care phlebotomist (current) drug therapy Z79.899 Active Problem Right elbow pain M25.521 Active Problem Cervicalgia M54.2 Active Medications No Known Medications Results No Known Results Summary Purpose [employer] Submission
[2019-03-19 06:13] LABS: ANION GAP 13.1 mmol/L (8-16); BLOOD UREA NITROGEN 12 mg/dL (7-26); BUN/CREATININE RATIO 14 (6-25); CARBON DIOXIDE 24 mmol/L (22-29); CHLORIDE 105 mmol/L (98-107); CREATININE, SERUM 0.86 mg/dL (0.72-1.25); EST GLOMERULAR FILTRATION RATE > 60 ML/MIN (60-); GLUCOSE 111 mg/dL (74-118); POTASSIUM 4.1 mmol/L (3.5-5.1); SODIUM 138 mmol/L (136-145)
[2019-03-19 08:45] VITALS: BP 144/91
--- NOTE | 2019-04-28 06:50 | Operative Report ---
DATE OF PROCEDURE: 03/19/2019 SURGEON: Josue Brooks MD PREOPERATIVE DIAGNOSES: 1. Refractory urge incontinence. 2. Urinary tract infections. POSTOPERATIVE DIAGNOSES: 1. Refractory urge incontinence. 2. Urinary tract infections. OPERATIONS PERFORMED: 1. Cystourethroscopy with bilateral ureteral catheterization and retrograde ureteropyelography (separate procedure performed for the urinary tract infections). 2. Interpretation of retrograde ureteropyelography. 3. Cystourethroscopy with injection of intravesical Botox (separate procedure performed for the refractory urge incontinence). ANESTHESIA: General. COMPLICATIONS: None. CLINICAL SUMMARY: Ean Abel is a 58-year-old man with a neurogenic bladder and refractory urge incontinence. He was brought for the above procedures. He is aware of the risks of bleeding, infection, injury to adjacent structures, need for additional procedures and elected to proceed. The patient also understands, he will need to continue doing intermittent catheterizations five times daily as he has been doing. OPERATIVE PROCEDURE IN DETAIL: Informed consent was verified. Ean Abel was properly identified and taken to the operating room, placed on the cystoscopy table in supine position. Anesthesia was uneventfully begun. The patient was then carefully and gently repositioned in the dorsal lithotomy position with all pressure points well padded. The patient's genitalia were prepared and draped in usual sterile fashion. The cystoscope sheath with visual obturator in place, was atraumatically inserted into the patient's urethra, it was guided on a normal distal urethra through being now wide caliber and not clinically significant bulbourethral stricture which is actually improved from the previous cystoscopy. We went through the normal sphincteric region and we went through the prostate bed, which was significant for visually obstructing trilobar prostatic hypertrophy with median lobe. We entered the patient's bladder. Panendoscopy revealed grade 2 to 3 trabeculations, but no tumors, no stones, no diverticula. No suspicious mucosal lesions were identified. An 8-Yi catheter was used to cannulate each ureter and retrograde ureteropyelograms were performed. Interpretation of retrograde ureteropyelography contrast was instilled in retrograde fashion bilaterally. There were no tumors, no stones, no diverticula. Unobstructed drainage was observed bilaterally fluoroscopically. 200 units of Botox were dissolved in 20 mL of sterile saline. They were then injected in 1 mL aliquots in an even distribution throughout the supratrigonal bladder. The bladder was then drained. The cystoscope was withdrawn, a belladonna and opium suppository were placed. The patient was uneventfully reversed from anesthesia and taken to recovery in stable condition. There were no complications to the procedure. The patient tolerated the procedure well. Explicit postoperative instructions were given, we will follow the patient up in the office. Josue Brooks MD [place]/MODL /[id number] cc: Peter Escobedo MD
== END | disposition home or self-care (01) ==
LOC: OR 05:00
PROVIDERS: ATTEND Urology
DX: N31.9 Neuromuscular dysfunction of bladder, unspecified (principal); N39.498 Other specified urinary incontinence; M19.90 Unspecified osteoarthritis, unspecified site; K44.9 Diaphragmatic hernia without obstruction or gangrene; I10 Essential (primary) hypertension; Z98.84 Bariatric surgery status; Z96.651 Presence of right artificial knee joint; N39.0 Urinary tract infection, site not specified; Z01.812 Encounter for preprocedural laboratory examination
CPT/HCPCS: 36415; 52005; 52287; 74420; 80048; C1758; J0587; J0696; J1100; J2001; J2250; J2405; J2704; Q9967

== ENCOUNTER → 2019-05-21 | Outpatient (CLI) | payer MEDICARE, OTHER ==
[~2019-05-21] MED LIST changes: -B&O 60MG R/S 60 MG SUPP PR ONE; -BOTULINUM TOXIN TYPE A 100 UNIT VIAL IM ONE; -CEFTRIAXONE SOD 1 GM/NS 50 ML 50 ML IV ONE; -DEXAMETHASONE SOD PHOS INJ 4 MG/ML VIAL ONE; +IOPAMIDOL 370 MG/ML 200 ML INFUS..BTL INJ ONE; -IOPAMIDOL 610MG/1ML 300 MG/ML VIAL IV ONE; -LIDOCAINE HCL 2% LOCAL INJ 5 ML SDV VIAL INJ ONE; -MIDAZOLAM HCL 2 MG/2 ML VIAL ONE; -ONDANSETRON HCL INJ 2MG/ML 2ML 2 MG/ML VIAL ONE; -PROPOFOL IV EMULSION 10 MG/ML 20 ML VIAL ONE; -SEVOFLURANE INHAL SOLN 250 ML PEN BTL ONE; +SODIUM CHLORIDE 0.9% 50ML 50 ML ONE
[2019-05-21 13:13] LABS: BLOOD UREA NITROGEN 12 mg/dL (7-26); BUN/CREATININE RATIO 15 (6-25); CREATININE, SERUM 0.79 mg/dL (0.72-1.25); EST GLOMERULAR FILTRATION RATE > 60 ML/MIN (60-)
--- NOTE | 2019-05-21 15:37 | Diagnostic Imaging Report ---
EXAM: CT Abdomen and Pelvis WITHOUT and WITH intravenous contrast INDICATION: Renal calculus, abdominal pain, incontinence COMPARISON: None. TECHNIQUE: Abdomen and pelvis were scanned utilizing a multidetector helical scanner from the lung base to the pubic symphysis before and after administration of IV contrast. Coronal and sagittal reformations were obtained. Routine protocol was performed. Scan was performed prior to contrast administration and during portal venous phase. IV CONTRAST: 100mL of Isovue 370 ORAL CONTRAST: Water RADIATION DOSE: Total DLP: 1372.6 mGy*cm Dose modulation, iterative reconstruction, and/or weight based adjustment of the mA/kV was utilized to reduce the radiation dose to as low as reasonably achievable. FINDINGS: LOWER THORAX: Normal. HEPATOBILIARY: Mild hepatic steatosis. No focal liver lesion. No biliary ductal dilation. Unremarkable gallbladder. SPLEEN: No splenomegaly. PANCREAS: No focal masses or ductal dilatation. ADRENALS: No adrenal nodules. KIDNEYS/URETERS: No hydronephrosis, stones, or solid mass lesions. PELVIC ORGANS/BLADDER: Multiple small outpouchings from the bladder appearing to communicate with the lumen likely represent bladder diverticuli. PERITONEUM / RETROPERITONEUM: No free air or fluid. LYMPH NODES: No lymphadenopathy. VESSELS: Minimal scattered atherosclerotic calcifications. GI TRACT: Status post Marques-en-Y. Severe sigmoid and descending colon diverticulosis without CT evidence of diverticulitis. No abnormal bowel thickening. No bowel obstruction. Normal appendix. BONES AND SOFT TISSUES: No acute osseous injury. No suspicious lytic or blastic lesions. IMPRESSION: No acute findings in the abdomen or pelvis. Specifically, no renal calculi or hydronephrosis. Multiple bladder diverticuli. Signed by: Reji Clements MD on 05/21/2019 3:34 PM
== END ==
LOC: CT 12:02
PROVIDERS: ATTEND Urology
DX: N39.0 Urinary tract infection, site not specified (principal); N20.0 Calculus of kidney
CPT/HCPCS: 36415; 74178; 82565; 84520; Q9967

== ENCOUNTER → 2019-09-03 | Day surgery (SDC) | payer MEDICARE, OTHER ==
[~2019-09-03] MED LIST changes: +B&O 60MG R/S 60 MG SUPP PR ONE; +BOTULINUM TOXIN TYPE A 100 UNIT VIAL IM ONE; +CEFTRIAXONE SOD 1 GM/NS 50 ML 50 ML IV ONE; +DEXAMETHASONE SOD PHOS INJ 4 MG/ML VIAL ONE; +FENTANYL CITRATE/PF 100MCG/2 ML INJ ONE; +IOPAMIDOL 300MG/ML 50ML INFUS..BTL IV ONE; -IOPAMIDOL 370 MG/ML 200 ML INFUS..BTL INJ ONE; +LIDOCAINE HCL 2% LOCAL INJ 5 ML SDV VIAL INJ ONE; +MIDAZOLAM HCL 2 MG/2 ML VIAL ONE; +ONDANSETRON HCL INJ 2MG/ML 2ML 2 MG/ML VIAL ONE; +PROPOFOL IV EMULSION 10 MG/ML 20 ML VIAL ONE; +SEVOFLURANE INHAL SOLN 250 ML PEN BTL ONE; -SODIUM CHLORIDE 0.9% 50ML 50 ML ONE
[2019-09-03 08:10] VITALS: BP 119/68
--- NOTE | 2019-09-27 19:51 | Operative Report ---
DATE OF PROCEDURE: 09/03/2019 SURGEON: Josue Brooks MD PREOPERATIVE DIAGNOSES: 1. Refractory urge incontinence. 2. Urinary tract infections. POSTOPERATIVE DIAGNOSES: 1. Refractory urge incontinence. 2. Urinary tract infections. OPERATIONS PERFORMED: 1. Cystourethroscopy with bilateral ureteral catheterization and retrograde ureteropyelography (separate procedure performed for the urinary tract infections). 2. Interpretation of retrograde ureteropyelography. 3. Cystourethroscopy with intravesical injection of Botox (separate performed for the refractory incontinence). ANESTHESIA: General. COMPLICATIONS: None. CLINICAL SUMMARY: Ean Abel is a complicated 58-year-old man with a neurogenic bladder. He does intermittent catheterizations five times daily and p.r.n. The patient has no overactive bladder and refractory urge incontinence managed well with Botox. He is aware of the risks of bleeding, infection, injury to adjacent structures, need for additional procedures and elected to proceed. OPERATIVE PROCEDURE IN DETAIL: Informed consent was verified, Ean Abel was properly identified and taken to the operating room, placed on the cystoscopy table in supine position. Anesthesia was uneventfully begun. The patient was then carefully gently repositioned in the dorsal lithotomy position with all pressure points well padded. His genitalia were prepared and draped in usual sterile fashion. The cystoscope sheath with visual obturator in place was atraumatically inserted into the patient's urethra and was guided down the unremarkable distal urethra through the bulbar region, which did not exhibit significant stricture compared to prior times were dilation as necessary. We went through the patient's prostate bed, which was significant for trilobar prostatic hypertrophy with visual obstruction and median lobe. We entered the patient's bladder. Panendoscopy revealed grade 4 trabeculations with early diverticular formations, but no tumors, no stones and there were no large diverticula present. An 8-German catheter was used to cannulate each ureter and retrograde ureteral pyelograms were performed. Interpretation of retrograde ureteropyelography contrast was instilled in retrograde fashion bilaterally. There were no tumors, no stones, and no diverticula. Unobstructed drainage was observed bilaterally fluoroscopically. 200 units of Botox were dissolved in 20 mL of sterile saline. They were injected in 1 mL aliquots in an even distribution in the supratrigonal bladder. The patient was then uneventfully reversed from anesthesia and taken to the recovery room in stable condition. There were no complications during the procedure. He tolerated the procedure well. Explicit postop instructions were given. We will follow the patient up in the office. Josue Brooks MD [facility]/MOD[facility] /[id number] cc: Peter Escobedo MD
== END | disposition home or self-care (01) ==
LOC: OR 05:01
PROVIDERS: ATTEND Urology
DX: N39.41 Urge incontinence (principal); N31.9 Neuromuscular dysfunction of bladder, unspecified; N32.89 Other specified disorders of bladder; N39.0 Urinary tract infection, site not specified; N40.1 Benign prostatic hyperplasia with lower urinary tract symptoms; N13.8 Other obstructive and reflux uropathy; I10 Essential (primary) hypertension
CPT/HCPCS: 52005; 52287; 74420; C1758; J0587; J0696; J1100; J2001; J2250; J2405; J2704; J3010; Q9967

== ENCOUNTER → 2019-12-03 | Day surgery (SDC) | payer MEDICARE, OTHER ==
[2019-11-30 15:30] LABS: ANION GAP 14.2 mmol/L (8-16); BLOOD UREA NITROGEN 22 mg/dL (7-26); BUN/CREATININE RATIO 22 (6-25); CALCIUM 8.5 mg/dL (8.4-10.2); CARBON DIOXIDE 25 mmol/L (22-29); CHLORIDE 105 mmol/L (98-107); CREATININE, SERUM 0.99 mg/dL (0.72-1.25); EST GLOMERULAR FILTRATION RATE > 60 ML/MIN (60-); GLUCOSE 88 mg/dL (74-118); POTASSIUM 4.2 mmol/L (3.5-5.1); SODIUM 140 mmol/L (136-145)
[~2019-12-03] MED LIST changes: +ACETAMINOPHEN 1000 MG/100 ML IV ONE; -DEXAMETHASONE SOD PHOS INJ 4 MG/ML VIAL ONE; -FENTANYL CITRATE/PF 100MCG/2 ML INJ ONE; +FISH OIL 1,2001 EACH PO; -MIDAZOLAM HCL 2 MG/2 ML VIAL ONE; +MULTIVITAMIN PO; -ONDANSETRON HCL INJ 2MG/ML 2ML 2 MG/ML VIAL ONE; +VITAMIN D310 MCG PO
[2019-12-03 07:50] VITALS: BP 106/78
--- NOTE | 2019-12-06 19:44 | Operative Report ---
DATE OF PROCEDURE: 12/03/2019 SURGEON: Josue Brooks MD PREOPERATIVE DIAGNOSES: 1. Refractory urge incontinence. 2. Urinary tract infections. POSTOPERATIVE DIAGNOSES: 1. Refractory urge incontinence. 2. Urinary tract infections. OPERATIONS PERFORMED: 1. Cystourethroscopy with bilateral ureteral catheterization and retrograde ureteropyelography (separate procedure performed for the urinary tract infections). 2. Interpretation of retrograde ureteropyelography. 3. Supervision of fluoroscopy, no radiologist present. 4. Cystourethroscopy with intravesical injection of Botox (separate procedure performed for the refractory urge incontinence). ANESTHESIA: General. COMPLICATIONS: None. CLINICAL SUMMARY: Ean Abel is a 58-year-old man with neurogenic bladder, chronic urinary retention. He was brought for a scheduled Botox treatment to limit his incontinence. He is aware of the risks of bleeding, infection, injury to adjacent structures, need for additional procedures and elected to proceed. OPERATIVE PROCEDURE IN DETAIL: Informed consent was verified. Ean Abel was properly identified, taken to the operating room and placed on the cystoscopy table in supine position. Anesthesia was uneventfully begun. The patient was then carefully and gently repositioned in the dorsal lithotomy position with all pressure points were well padded. His genitalia were prepared and draped in usual sterile fashion. The cystoscope sheath with the visual obturator in place was atraumatically inserted. The patient's urethra was guided down the relatively unremarkable urethra until the bulbar region, where there was a wide caliber stricture, but it was not clinically significant any longer. The prostate bed was traversed, it exhibited trilobar prostatic hypertrophy with visual obstruction. We entered the patient's bladder. Panendoscopy revealed heavy trabeculations with cellule formation. There is no suspicious mucosal lesions and there were no tumors. An 8-Bulgarian catheter was used to cannulate each ureter and retrograde ureteropyelograms were performed. Interpretation of retrograde ureteropyelography contrast was instilled in retrograde fashion bilaterally. There were no tumors, no stones, and no diverticula. Unobstructed drainage was observed bilaterally fluoroscopically. 200 units of Botox were dissolved in 20 mL of sterile saline, there were then injected 1 mL of aliquots in an even distribution throughout the bladder. The patient's bladder was drained. Cystoscope was withdrawn. Belladonna and opium suppository were placed, revealing BPH, but no tumors and no suspicious lesions that were noted. The patient was then uneventfully reversed from anesthesia and taken to recovery room in stable condition. There were no complications to the procedure. He tolerated the procedure well. Plans will be to follow the patient up in the office and we will plan on returning to the operating room in approximately 3 months to perform more Botox. MD NYASIA Griffith/DARLENE /[id number]
== END | disposition home or self-care (01) ==
LOC: OR 05:15
PROVIDERS: ATTEND Urology
DX: N31.9 Neuromuscular dysfunction of bladder, unspecified (principal); N39.41 Urge incontinence; N39.0 Urinary tract infection, site not specified; N35.912 Unspecified bulbous urethral stricture, male; N40.0 Benign prostatic hyperplasia without lower urinary tract symptoms; N13.8 Other obstructive and reflux uropathy; A69.20 Lyme disease, unspecified; K44.9 Diaphragmatic hernia without obstruction or gangrene; Z01.810 Encounter for preprocedural cardiovascular examination; Z01.812 Encounter for preprocedural laboratory examination; Z11.59 Encounter for screening for other viral diseases
CPT/HCPCS: 36415; 52005; 52287; 74420; 80048; 87635; 93005; C1758; J0131; J0587; J0696; J2001; J2704; Q9967

== ENCOUNTER → 2020-03-24 | Day surgery (SDC) | payer MEDICARE, OTHER ==
[2020-03-21 10:50] LABS: ANION GAP 12.6 mmol/L (8-16); BLOOD UREA NITROGEN 12 mg/dL (7-26); BUN/CREATININE RATIO 14 (6-25); CALCIUM 8.9 mg/dL (8.4-10.2); CARBON DIOXIDE 28 mmol/L (22-29); CHLORIDE 104 mmol/L (98-107); CREATININE, SERUM 0.85 mg/dL (0.72-1.25); EST GLOMERULAR FILTRATION RATE > 60 ML/MIN (60-); GLUCOSE 92 mg/dL (74-118); POTASSIUM 4.6 mmol/L (3.5-5.1); SODIUM 140 mmol/L (136-145)
[~2020-03-24] MED LIST changes: -ACETAMINOPHEN 1000 MG/100 ML IV ONE; +DEXAMETHASONE SOD PHOS INJ 4 MG/ML VIAL ONE; +FENTANYL CITRATE/PF 100MCG/2 ML INJ ONE; +GENTAMICIN 80MG/NS 100 ML 100 ML IV ONE; +MIDAZOLAM HCL 2 MG/2 ML VIAL ONE; +ONDANSETRON HCL INJ 2MG/ML 2ML 2 MG/ML VIAL ONE
[2020-03-24 08:30] VITALS: BP 126/83
== END | disposition home or self-care (01) ==
LOC: OR 05:10
PROVIDERS: ATTEND Urology
DX: N39.41 Urge incontinence (principal); N31.9 Neuromuscular dysfunction of bladder, unspecified; N39.0 Urinary tract infection, site not specified; N40.0 Benign prostatic hyperplasia without lower urinary tract symptoms; N32.89 Other specified disorders of bladder; N32.3 Diverticulum of bladder; I10 Essential (primary) hypertension; D64.9 Anemia, unspecified; Z01.810 Encounter for preprocedural cardiovascular examination; Z01.812 Encounter for preprocedural laboratory examination; Z11.59 Encounter for screening for other viral diseases; Z86.73 Personal history of transient ischemic attack (TIA), and cerebral infarction without residual deficits
CPT/HCPCS: 36415; 52005; 52287; 74420; 80048; 93005; C1758; J0587; J0696; J1100; J1580; J2001; J2250; J2405; J2704; J3010; Q9967; U0002

== ENCOUNTER → 2020-08-20 | Day surgery (SDC) | payer MEDICARE, OTHER ==
[~2020-08-20] MED LIST changes: +BARIATRIC VITAMINS PO; +CEFTRIAXONE SOD 1 GM VIAL ONE; -CEFTRIAXONE SOD 1 GM/NS 50 ML 50 ML IV ONE; -DEXAMETHASONE SOD PHOS INJ 4 MG/ML VIAL ONE; -FENTANYL CITRATE/PF 100MCG/2 ML INJ ONE; -GENTAMICIN 80MG/NS 100 ML 100 ML IV ONE; +GENTAMICIN 80MG/NS 100 ML 200 ML IV ONE; -LIDOCAINE HCL 2% LOCAL INJ 5 ML SDV VIAL INJ ONE; -MIDAZOLAM HCL 2 MG/2 ML VIAL ONE; -ONDANSETRON HCL INJ 2MG/ML 2ML 2 MG/ML VIAL ONE; -PROPOFOL IV EMULSION 10 MG/ML 20 ML VIAL ONE; -SEVOFLURANE INHAL SOLN 250 ML PEN BTL ONE; +SODIUM CHLORIDE 0.9% 50ML 50 ML ONE
[2020-08-20 06:52] LABS: BASOPHILS # (AUTO) 0.1 (0.0-0.1); BASOPHILS % 0.9 % (0.0-1.0); EOSINOPHILS # (AUTO) 0.1 (0.0-0.4); EOSINOPHILS % 1.5 % (0.0-6.0); HEMATOCRIT 44.3 % (38.2-49.6); LYMPHOCYTES % 37.2 % (18.0-39.1); MEAN CORPUSCULAR HEMOGLOBIN 28.7 pg (28-32); MEAN CORPUSCULAR HGB CONC 33.9 g/dL (31-35); MEAN CORPUSCULAR VOLUME 84.9 fL (81-99); MONOCYTES # (AUTO) 0.7 (0.2-0.8); MONOCYTES % 13.4 % (4.4-11.3); NEUTROPHILS # (AUTO) 2.5 (2.1-6.9); NEUTROPHILS % 46.8 % (38.7-80.0); PLATELET COUNT 185 x10e3/uL (140-360); RED BLOOD COUNT 5.22 x10e6/uL (4.3-5.7); RED CELL DISTRIBUTION WIDTH 13.2 % (11.7-14.4)
[2020-08-20 07:06] LABS: BLOOD UREA NITROGEN 14 mg/dL (7-26); BUN/CREATININE RATIO 17 (6-25); CALCIUM 8.6 mg/dL (8.4-10.2); CARBON DIOXIDE 25 mmol/L (22-29); CHLORIDE 107 mmol/L (98-107); CREATININE, SERUM 0.83 mg/dL (0.72-1.25); EST GLOMERULAR FILTRATION RATE > 60 ML/MIN (60-); GLUCOSE 111 mg/dL (74-118); SODIUM 140 mmol/L (136-145)
[2020-08-20 09:21] VITALS: BP 119/74
== END | disposition home or self-care (01) ==
LOC: OR 06:08
PROVIDERS: ATTEND Urology
DX: N39.41 Urge incontinence (principal); N39.0 Urinary tract infection, site not specified; N31.9 Neuromuscular dysfunction of bladder, unspecified; N40.1 Benign prostatic hyperplasia with lower urinary tract symptoms; N13.8 Other obstructive and reflux uropathy; H91.90 Unspecified hearing loss, unspecified ear; K44.9 Diaphragmatic hernia without obstruction or gangrene; F32.9 Major depressive disorder, single episode, unspecified; Z01.810 Encounter for preprocedural cardiovascular examination; Z01.812 Encounter for preprocedural laboratory examination; Z20.822 Contact with and (suspected) exposure to COVID-19; Z86.73 Personal history of transient ischemic attack (TIA), and cerebral infarction without residual deficits
CPT/HCPCS: 36415; 52005; 52287; 74420; 80048; 85025; 93005; C1758; J0587; J0696; J1580; Q9967; U0002

== ENCOUNTER → 2020-12-08 | Day surgery (SDC) | payer MEDICARE, OTHER ==
[2020-12-05 11:49] LABS: ANION GAP 11.3 mmol/L (8-16); BLOOD UREA NITROGEN 14 mg/dL (7-26); BUN/CREATININE RATIO 18 (6-25); CALCIUM 8.4 mg/dL (8.4-10.2); CARBON DIOXIDE 27 mmol/L (22-29); CHLORIDE 106 mmol/L (98-107); EST GLOMERULAR FILTRATION RATE > 60 ML/MIN (60-); GLUCOSE 112 mg/dL (74-118); POTASSIUM 4.3 mmol/L (3.5-5.1); SODIUM 140 mmol/L (136-145)
[~2020-12-08] MED LIST changes: +CEFTRIAXONE 1 GM VIAL ONE; -CEFTRIAXONE SOD 1 GM VIAL ONE; +CIALIS20 MG PO; +DEXAMETHASONE SOD PHOS INJ 4 MG/ML VIAL ONE; +FENTANYL CITRATE/PF 100MCG/2 ML INJ ONE; +LIDOCAINE HCL 2% LOCAL INJ 5 ML SDV VIAL INJ ONE; +MIDAZOLAM HCL 2 MG/2 ML VIAL ONE; +ONDANSETRON HCL INJ 2MG/ML 2ML 2 MG/ML VIAL ONE; +POVIDONE IODINE 0.05% 0.05 % ML PO ONE; +PROPOFOL IV EMULSION 10 MG/ML 20 ML VIAL ONE; +SEVOFLURANE INHAL SOLN 250 ML PEN BTL ONE
[2020-12-08 08:45] VITALS: BP 124/74
== END | disposition home or self-care (01) ==
LOC: OR 07:11
PROVIDERS: ATTEND Urology
DX: N39.41 Urge incontinence (principal); Z87.440 Personal history of urinary (tract) infections; N31.9 Neuromuscular dysfunction of bladder, unspecified; A69.22 Other neurologic disorders in Lyme disease; N40.0 Benign prostatic hyperplasia without lower urinary tract symptoms; N32.89 Other specified disorders of bladder; I10 Essential (primary) hypertension; R00.1 Bradycardia, unspecified; Z01.810 Encounter for preprocedural cardiovascular examination; Z01.812 Encounter for preprocedural laboratory examination; Z20.822 Contact with and (suspected) exposure to COVID-19; Z86.73 Personal history of transient ischemic attack (TIA), and cerebral infarction without residual deficits
CPT/HCPCS: 36415; 52005; 52287; 74420; 80048; 93005; C1758; J0587; J0696; J1100; J1580; J2001; J2250; J2405; J2704; J3010; Q9967; U0002

== ENCOUNTER → 2021-05-11 | Day surgery (SDC) | payer MEDICARE, OTHER ==
[2021-05-09 08:09] LABS: BASOPHILS % 0.6 % (0.0-1.0); EOSINOPHILS # (AUTO) 0.1 (0.0-0.4); EOSINOPHILS % 0.8 % (0.0-6.0); HEMATOCRIT 45.3 % (38.2-49.6); HEMOGLOBIN 14.8 g/dL (14.0-18.0); LYMPHOCYTES # (AUTO) 2.2 (1.0-3.2); LYMPHOCYTES % 33.7 % (18.0-39.1); MEAN CORPUSCULAR HEMOGLOBIN 29.4 pg (28-32); MEAN CORPUSCULAR HGB CONC 32.7 g/dL (31-35); MEAN CORPUSCULAR VOLUME 90.1 fL (81-99); MONOCYTES # (AUTO) 0.7 (0.2-0.8); MONOCYTES % 10.5 % (4.4-11.3); NEUTROPHILS # (AUTO) 3.6 (2.1-6.9); NEUTROPHILS % 54.2 % (38.7-80.0); PLATELET COUNT 184 x10e3/uL (140-360); RED BLOOD COUNT 5.03 x10e6/uL (4.3-5.7); RED CELL DISTRIBUTION WIDTH 12.3 % (11.7-14.4)
[2021-05-09 08:54] LABS: ANION GAP 12.5 mmol/L (8-16); CALCIUM 8.6 mg/dL (8.4-10.2); CREATININE, SERUM 0.85 mg/dL (0.72-1.25); POTASSIUM 4.5 mmol/L (3.5-5.1)
[~2021-05-11] MED LIST changes: -B&O 60MG R/S 60 MG SUPP PR ONE; +BELLADONNA/OPIUM 30 MG SUPP RC ONE; +DEXAMETHASONE SOD PHOS INJ 4 MG/ML SDV ONE; -DEXAMETHASONE SOD PHOS INJ 4 MG/ML VIAL ONE; +GENTAMICIN 80MG/NS 100 ML 100 ML IV ONE; -GENTAMICIN 80MG/NS 100 ML 200 ML IV ONE; -SODIUM CHLORIDE 0.9% 50ML 50 ML ONE
[2021-05-11 08:22] VITALS: BP 134/83
== END | disposition home or self-care (01) ==
LOC: OR 06:04
PROVIDERS: ATTEND Urology
DX: N39.41 Urge incontinence (principal); N35.912 Unspecified bulbous urethral stricture, male; N39.0 Urinary tract infection, site not specified; N32.3 Diverticulum of bladder; N32.89 Other specified disorders of bladder; N31.9 Neuromuscular dysfunction of bladder, unspecified; N40.0 Benign prostatic hyperplasia without lower urinary tract symptoms; I10 Essential (primary) hypertension; Z01.810 Encounter for preprocedural cardiovascular examination; Z01.812 Encounter for preprocedural laboratory examination; Z20.822 Contact with and (suspected) exposure to COVID-19; Z86.73 Personal history of transient ischemic attack (TIA), and cerebral infarction without residual deficits
CPT/HCPCS: 36415; 52281; 74420; 80048; 85025; 93005; C1758; J0587; J0696; J1100; J1580; J2001; J2250; J2405; J2704; J3010; Q9967; U0002

== ENCOUNTER → 2021-09-21 | Day surgery (SDC) | payer MEDICARE, OTHER ==
[2021-09-19 09:40] LABS: BASOPHILS # (AUTO) 0.1 (0.0-0.1); EOSINOPHILS # (AUTO) 0.1 (0.0-0.4); HEMATOCRIT 42.8 % (38.2-49.6); HEMOGLOBIN 14.3 g/dL (14.0-18.0); LYMPHOCYTES # (AUTO) 1.5 (1.0-3.2); LYMPHOCYTES % 28.8 % (18.0-39.1); MEAN CORPUSCULAR HGB CONC 33.4 g/dL (31-35); MEAN CORPUSCULAR VOLUME 89.7 fL (81-99); MONOCYTES # (AUTO) 0.6 (0.2-0.8); MONOCYTES % 11.5 % (4.4-11.3); NEUTROPHILS % 57.3 % (38.7-80.0); PLATELET COUNT 168 x10e3/uL (140-360); RED BLOOD COUNT 4.77 x10e6/uL (4.3-5.7); RED CELL DISTRIBUTION WIDTH 12.9 % (11.7-14.4)
[2021-09-19 10:11] LABS: ANION GAP 11.2 mmol/L (8-16); CALCIUM 8.3 mg/dL (8.4-10.2); CREATININE, SERUM 0.94 mg/dL (0.72-1.25); POTASSIUM 4.2 mmol/L (3.5-5.1)
[~2021-09-21] MED LIST changes: +B&O 60MG R/S 60 MG SUPP PR ONE; -BELLADONNA/OPIUM 30 MG SUPP RC ONE; -FENTANYL CITRATE/PF 100MCG/2 ML INJ ONE; -MIDAZOLAM HCL 2 MG/2 ML VIAL ONE; +SODIUM CHLORIDE 0.9% 50ML 50 ML ONE
[2021-09-21 07:55] VITALS: BP 129/93
== END | disposition home or self-care (01) ==
LOC: OR 05:46
PROVIDERS: ATTEND Urology
DX: N39.41 Urge incontinence (principal); N31.9 Neuromuscular dysfunction of bladder, unspecified; N39.0 Urinary tract infection, site not specified; N32.3 Diverticulum of bladder; N35.912 Unspecified bulbous urethral stricture, male; N32.89 Other specified disorders of bladder; N40.0 Benign prostatic hyperplasia without lower urinary tract symptoms; I10 Essential (primary) hypertension; A69.20 Lyme disease, unspecified; R00.1 Bradycardia, unspecified; F32.A Depression, unspecified; Z01.810 Encounter for preprocedural cardiovascular examination; Z01.812 Encounter for preprocedural laboratory examination; Z20.822 Contact with and (suspected) exposure to COVID-19; Z79.899 Other long term (current) drug therapy; Z86.73 Personal history of transient ischemic attack (TIA), and cerebral infarction without residual deficits
CPT/HCPCS: 36415; 52005; 52287; 74420; 80048; 85025; 93005; C1758; J0587; J0696; J1100; J1580; J2001; J2405; J2704; Q9967; U0002

== ENCOUNTER → 2022-01-04 | Day surgery (SDC) | payer MEDICARE, OTHER ==
[2022-01-03 08:44] LABS: BASOPHILS % 0.7 % (0.0-1.0); EOSINOPHILS # (AUTO) 0.1 (0.0-0.4); EOSINOPHILS % 1.3 % (0.0-6.0); HEMATOCRIT 46.6 % (38.2-49.6); HEMOGLOBIN 15.1 g/dL (14.0-18.0); LYMPHOCYTES # (AUTO) 1.7 (1.0-3.2); LYMPHOCYTES % 28.3 % (18.0-39.1); MEAN CORPUSCULAR HEMOGLOBIN 30.3 pg (28-32); MEAN CORPUSCULAR HGB CONC 32.4 g/dL (31-35); MEAN CORPUSCULAR VOLUME 93.4 fL (81-99); MONOCYTES # (AUTO) 0.5 (0.2-0.8); NEUTROPHILS # (AUTO) 3.7 (2.1-6.9); NEUTROPHILS % 61.5 % (38.7-80.0); PLATELET COUNT 188 x10e3/uL (140-360); RED BLOOD COUNT 4.99 x10e6/uL (4.3-5.7); RED CELL DISTRIBUTION WIDTH 12.3 % (11.7-14.4)
[2022-01-03 09:11] LABS: ANION GAP 13.9 mmol/L (8-16); CALCIUM 8.3 mg/dL (8.4-10.2); CREATININE, SERUM 0.85 mg/dL (0.72-1.25); POTASSIUM 4.9 mmol/L (3.5-5.1)
[~2022-01-04] MED LIST changes: -CEFTRIAXONE 1 GM VIAL ONE; -GENTAMICIN 80MG/NS 100 ML 100 ML IV ONE; +GENTAMICIN 80MG/NS 100 ML 200 ML IV ONE; -IOPAMIDOL 300MG/ML 50ML INFUS..BTL IV ONE; +IOPAMIDOL 610MG/1ML 300 MG/ML VIAL IV ONE; +MIDAZOLAM HCL 2 MG/2 ML VIAL ONE; -SODIUM CHLORIDE 0.9% 50ML 50 ML ONE
[2022-01-04 07:40] VITALS: BP 138/80
== END | disposition home or self-care (01) ==
LOC: OR 05:20
PROVIDERS: ATTEND Urology
DX: N39.41 Urge incontinence (principal); N39.0 Urinary tract infection, site not specified; N31.9 Neuromuscular dysfunction of bladder, unspecified; A69.22 Other neurologic disorders in Lyme disease; N40.0 Benign prostatic hyperplasia without lower urinary tract symptoms; N13.8 Other obstructive and reflux uropathy; N32.89 Other specified disorders of bladder; M06.9 Rheumatoid arthritis, unspecified; M19.90 Unspecified osteoarthritis, unspecified site; I10 Essential (primary) hypertension; Z01.810 Encounter for preprocedural cardiovascular examination; Z01.812 Encounter for preprocedural laboratory examination; Z20.822 Contact with and (suspected) exposure to COVID-19; Z79.899 Other long term (current) drug therapy; Z86.73 Personal history of transient ischemic attack (TIA), and cerebral infarction without residual deficits
CPT/HCPCS: 0223U; 36415; 52005; 52287; 74420; 80048; 85025; 93005; C1758; J0587; J1100; J1580; J2001; J2250; J2405; J2704; Q9967

== ENCOUNTER → 2022-09-20 | Day surgery (SDC) | payer MEDICARE, OTHER ==
[2022-09-14 09:10] LABS: BASOPHILS % 0.5 % (0.0-1.0); EOSINOPHILS # (AUTO) 0.1 (0.0-0.4); EOSINOPHILS % 0.8 % (0.0-6.0); HEMATOCRIT 44.7 % (38.2-49.6); HEMOGLOBIN 14.6 g/dL (14.0-18.0); LYMPHOCYTES # (AUTO) 1.6 (1.0-3.2); LYMPHOCYTES % 25.2 % (18.0-39.1); MEAN CORPUSCULAR HEMOGLOBIN 29.1 pg (28-32); MEAN CORPUSCULAR HGB CONC 32.7 g/dL (31-35); MONOCYTES # (AUTO) 0.7 (0.2-0.8); MONOCYTES % 11.2 % (4.4-11.3); NEUTROPHILS # (AUTO) 4.1 (2.1-6.9); PLATELET COUNT 191 x10e3/uL (140-360); RED BLOOD COUNT 5.02 x10e6/uL (4.3-5.7); RED CELL DISTRIBUTION WIDTH 12.4 % (11.7-14.4)
[2022-09-14 09:37] LABS: ANION GAP 14.6 mmol/L (8-16); CREATININE, SERUM 0.83 mg/dL (0.72-1.25); POTASSIUM 4.6 mmol/L (3.5-5.1)
[~2022-09-20] MED LIST changes: +ACETAMINOPHEN 1000 MG/100 ML 100 ML IV ONE; -B&O 60MG R/S 60 MG SUPP PR ONE; +CEFTRIAXONE 1 GM VIAL ONE; +FENTANYL CITRATE/PF 100MCG/2 ML INJ ONE; +LACTATED RINGER'S 1,000 ML ONE; +MACRODANTIN25 MG PO; -MIDAZOLAM HCL 2 MG/2 ML VIAL ONE
[2022-09-20 08:54] VITALS: BP 133/88
== END | disposition home or self-care (01) ==
LOC: OR 06:09
PROVIDERS: ATTEND Urology
DX: N39.41 Urge incontinence (principal); N31.9 Neuromuscular dysfunction of bladder, unspecified; N35.912 Unspecified bulbous urethral stricture, male; N39.0 Urinary tract infection, site not specified; N32.3 Diverticulum of bladder; N40.1 Benign prostatic hyperplasia with lower urinary tract symptoms; N13.8 Other obstructive and reflux uropathy; N32.89 Other specified disorders of bladder; Z01.810 Encounter for preprocedural cardiovascular examination; Z01.812 Encounter for preprocedural laboratory examination; Z79.899 Other long term (current) drug therapy
CPT/HCPCS: 36415; 52005; 52287; 74420; 80048; 85025; 93005; C1758; J0131; J0587; J0696; J1100; J1580; J2001; J2405; J2704; J3010; J7121; Q9967

== ENCOUNTER → 2023-05-16 | Day surgery (SDC) | payer MEDICARE, OTHER ==
[~2023-05-16] MED LIST changes: -ACETAMINOPHEN 1000 MG/100 ML 100 ML IV ONE; +DEXMEDETOMIDINE HCL 200 MCG/2 ML VIAL ONE; +GENTAMICIN 80MG/NS 100 ML 100 ML IV ONE; -GENTAMICIN 80MG/NS 100 ML 200 ML IV ONE; +MIDAZOLAM HCL 2 MG/2 ML VIAL ONE; -POVIDONE IODINE 0.05% 0.05 % ML PO ONE
[2023-05-16 07:16] VITALS: TEMP 98.1
[2023-05-16 07:45] VITALS: BP 109/74; PULSE 58; RESP 17; O2SAT 99
== END | disposition home or self-care (01) ==
LOC: OR 05:23
PROVIDERS: ATTEND Urology
DX: N31.9 Neuromuscular dysfunction of bladder, unspecified (principal); N39.41 Urge incontinence; B94.8 Sequelae of other specified infectious and parasitic diseases; N39.0 Urinary tract infection, site not specified; N40.0 Benign prostatic hyperplasia without lower urinary tract symptoms; N32.3 Diverticulum of bladder; N20.9 Urinary calculus, unspecified; D64.9 Anemia, unspecified; F41.9 Anxiety disorder, unspecified; F32.A Depression, unspecified; Z86.73 Personal history of transient ischemic attack (TIA), and cerebral infarction without residual deficits; Z79.1 Long term (current) use of non-steroidal anti-inflammatories (NSAID); Z79.899 Other long term (current) drug therapy
CPT/HCPCS: 52005; 52287; 74420; C1758; J0587; J0696; J1100; J1580; J2001; J2250; J2405; J2704; J3010; J7121; Q9967

== ENCOUNTER → 2023-12-12 | Day surgery (SDC) | payer MEDICARE, OTHER ==
[2023-12-10 09:04] LABS: BASOPHILS % 0.5 % (0.0-1.0); EOSINOPHILS # (AUTO) 0.1 (0.0-0.4); EOSINOPHILS % 0.9 % (0.0-6.0); HEMATOCRIT 42.6 % (38.2-49.6); HEMOGLOBIN 14.7 g/dL (14.0-18.0); LYMPHOCYTES # (AUTO) 1.5 (1.0-3.2); LYMPHOCYTES % 27.1 % (18.0-39.1); MEAN CORPUSCULAR HEMOGLOBIN 30.5 pg (28-32); MEAN CORPUSCULAR HGB CONC 34.5 g/dL (31-35); MEAN CORPUSCULAR VOLUME 88.4 fL (81-99); MONOCYTES # (AUTO) 0.5 (0.2-0.8); MONOCYTES % 8.8 % (4.4-11.3); NEUTROPHILS # (AUTO) 3.4 (2.1-6.9); NEUTROPHILS % 62.5 % (38.7-80.0); PLATELET COUNT 159 x10e3/uL (140-360); RED BLOOD COUNT 4.82 x10e6/uL (4.3-5.7); RED CELL DISTRIBUTION WIDTH 12.8 % (11.7-14.4); WHITE BLOOD COUNT 5.47 x10e3/uL (4.8-10.8)
[2023-12-10 09:21] LABS: CREATININE, SERUM 0.8 mg/dL (0.72-1.25)
[2023-12-10 10:03] LABS: ANION GAP 7.1 mmol/L (8-16); POTASSIUM 5.1 mmol/L (3.0-5.1)
[2023-12-10 10:05] LABS: CALCIUM 8.8 mg/dL (8.0-10.3)
[~2023-12-12] MED LIST changes: -CEFTRIAXONE 1 GM VIAL ONE; -DEXAMETHASONE SOD PHOS INJ 4 MG/ML SDV ONE; -DEXMEDETOMIDINE HCL 200 MCG/2 ML VIAL ONE; -GENTAMICIN 80MG/NS 100 ML 100 ML IV ONE; +HYDROCODON-ACE1 EAC9 PO; -LACTATED RINGER'S 1,000 ML ONE; -MIDAZOLAM HCL 2 MG/2 ML VIAL ONE; -ONDANSETRON HCL INJ 2MG/ML 2ML 2 MG/ML VIAL ONE
[2023-12-12] MEDS: CEFTRIAXONE 1 GM VIAL ONE (05:52)
[2023-12-12] MEDS: GENTAMICIN 80MG/NS 100 ML 100 ML IV ONE (05:54)
[2023-12-12] MEDS: LACTATED RINGER'S 1,000 ML ONE (05:54)
[2023-12-12 08:25] VITALS: BP 133/89; PULSE 55; RESP 16; O2SAT 100
== END | disposition home or self-care (01) ==
LOC: OR 05:54
PROVIDERS: ATTEND Urology
DX: N39.41 Urge incontinence (principal); N39.0 Urinary tract infection, site not specified; N32.89 Other specified disorders of bladder; N31.9 Neuromuscular dysfunction of bladder, unspecified; N40.0 Benign prostatic hyperplasia without lower urinary tract symptoms; I10 Essential (primary) hypertension; E11.9 Type 2 diabetes mellitus without complications; F41.9 Anxiety disorder, unspecified; F32.A Depression, unspecified; Z01.810 Encounter for preprocedural cardiovascular examination; Z01.812 Encounter for preprocedural laboratory examination; Z79.1 Long term (current) use of non-steroidal anti-inflammatories (NSAID); Z79.899 Other long term (current) drug therapy; Z86.73 Personal history of transient ischemic attack (TIA), and cerebral infarction without residual deficits
CPT/HCPCS: 36415; 52005; 52287; 74420; 80048; 85025; 87086; 93005; C1758; J0587; J0696; J1580; J2001; J2704; J3010; J7121; Q9967

== ENCOUNTER → 2024-04-22 | Outpatient (REF) | payer MEDICARE, OTHER ==
[~2024-04-22] MED LIST changes: -BOTULINUM TOXIN TYPE A 100 UNIT VIAL IM ONE; -FENTANYL CITRATE/PF 100MCG/2 ML INJ ONE; -IOPAMIDOL 610MG/1ML 300 MG/ML VIAL IV ONE; -LIDOCAINE HCL 2% LOCAL INJ 5 ML SDV VIAL INJ ONE; -PROPOFOL IV EMULSION 10 MG/ML 20 ML VIAL ONE; -SEVOFLURANE INHAL SOLN 250 ML PEN BTL ONE
== END ==
LOC: US 07:23
PROVIDERS: ATTEND Urology
DX: N39.0 Urinary tract infection, site not specified (principal)
CPT/HCPCS: 76770; 76857

== ENCOUNTER → 2024-04-30 | Day surgery (SDC) | payer MEDICARE, OTHER ==
[2024-04-29 12:57] LABS: BASOPHILS # (AUTO) 0.1 (0.0-0.1); BASOPHILS % 0.9 % (0.0-1.0); EOSINOPHILS # (AUTO) 0.1 (0.0-0.4); EOSINOPHILS % 0.9 % (0.0-6.0); HEMATOCRIT 44.1 % (38.2-49.6); LYMPHOCYTES # (AUTO) 1.8 (1.0-3.2); LYMPHOCYTES % 28.2 % (18.0-39.1); MEAN CORPUSCULAR HEMOGLOBIN 29.6 pg (28-32); MEAN CORPUSCULAR HGB CONC 31.7 g/dL (31-35); MEAN CORPUSCULAR VOLUME 93.2 fL (81-99); MONOCYTES # (AUTO) 0.7 (0.2-0.8); MONOCYTES % 10.4 % (4.4-11.3); NEUTROPHILS # (AUTO) 3.8 (2.1-6.9); NEUTROPHILS % 59.4 % (38.7-80.0); PLATELET COUNT 175 x10e3/uL (140-360); RED BLOOD COUNT 4.73 x10e6/uL (4.3-5.7); RED CELL DISTRIBUTION WIDTH 12.9 % (11.7-14.4); WHITE BLOOD COUNT 6.46 x10e3/uL (4.8-10.8)
[2024-04-29 13:26] LABS: ANION GAP 14.8 mmol/L (8-16); CALCIUM 8.8 mg/dL (8.4-10.2); CREATININE, SERUM 0.89 mg/dL (0.72-1.25); POTASSIUM 4.8 mmol/L (3.5-5.1)
[~2024-04-30] MED LIST changes: +BOTULINUM TOXIN TYPE A 100 UNIT VIAL IM ONE; +DEXAMETHASONE SOD PHOS INJ 4 MG/ML SDV ONE; +FENTANYL CITRATE/PF 100MCG/2 ML INJ ONE; +IOPAMIDOL 610MG/1ML 300 MG/ML VIAL IV ONE; +LIDOCAINE HCL 2% LOCAL INJ 5 ML SDV VIAL INJ ONE; +MIDAZOLAM HCL 2 MG/2 ML VIAL ONE; +ONDANSETRON HCL INJ 2MG/ML 2ML 2 MG/ML VIAL ONE; +PROPOFOL IV EMULSION 10 MG/ML 20 ML VIAL ONE; +SEVOFLURANE INHAL SOLN 250 ML PEN BTL ONE
[2024-04-30] MEDS: GENTAMICIN 80MG/NS 100 ML 200 ML IV ONE (06:13)
[2024-04-30] MEDS: LACTATED RINGER'S 1,000 ML ONE (06:14)
[2024-04-30] MEDS: PHENAZOPYRIDINE HCL 100 MG TAB ONE (08:00)
[2024-04-30 08:20] VITALS: BP 140/86; PULSE 69; RESP 19; O2SAT 100
== END | disposition home or self-care (01) ==
LOC: OR 05:25
PROVIDERS: ATTEND Urology
DX: N39.41 Urge incontinence (principal); N39.0 Urinary tract infection, site not specified; N40.1 Benign prostatic hyperplasia with lower urinary tract symptoms; N13.8 Other obstructive and reflux uropathy; N32.3 Diverticulum of bladder; I10 Essential (primary) hypertension; K21.9 Gastro-esophageal reflux disease without esophagitis; N31.9 Neuromuscular dysfunction of bladder, unspecified; F41.9 Anxiety disorder, unspecified; F32.A Depression, unspecified; Z01.810 Encounter for preprocedural cardiovascular examination; Z01.812 Encounter for preprocedural laboratory examination; Z79.899 Other long term (current) drug therapy; Z86.73 Personal history of transient ischemic attack (TIA), and cerebral infarction without residual deficits
CPT/HCPCS: 36415; 52005; 52287; 74420; 80048; 85025; 93005; J0587; J1100; J1580; J2003; J2250; J2405; J2704; J3010; J7121; Q9967

== ENCOUNTER → 2024-09-03 | Day surgery (SDC) | payer MEDICARE, OTHER ==
[2024-08-31 09:03] LABS: BASOPHILS % 0.6 % (0.0-1.0); EOSINOPHILS # (AUTO) 0.1 (0.0-0.4); EOSINOPHILS % 1.3 % (0.0-6.0); HEMATOCRIT 42.6 % (38.2-49.6); HEMOGLOBIN 14.3 g/dL (14.0-18.0); LYMPHOCYTES # (AUTO) 1.5 (1.0-3.2); MEAN CORPUSCULAR HEMOGLOBIN 29.4 pg (28-32); MEAN CORPUSCULAR HGB CONC 33.6 g/dL (31-35); MEAN CORPUSCULAR VOLUME 87.7 fL (81-99); MONOCYTES # (AUTO) 0.7 (0.2-0.8); MONOCYTES % 12.6 % (4.4-11.3); NEUTROPHILS % 56.3 % (38.7-80.0); PLATELET COUNT 202 x10e3/uL (140-360); RED BLOOD COUNT 4.86 x10e6/uL (4.3-5.7); RED CELL DISTRIBUTION WIDTH 12.9 % (11.7-14.4); WHITE BLOOD COUNT 5.25 x10e3/uL (4.8-10.8)
[2024-08-31 09:27] LABS: ANION GAP 13.1 mmol/L (8-16); CALCIUM 8.8 mg/dL (8.4-10.2); CREATININE, SERUM 0.85 mg/dL (0.72-1.25); POTASSIUM 4.1 mmol/L (3.5-5.1)
[~2024-09-03] MED LIST changes: +ACETAMINOPHEN 1000 MG/100 ML 100 ML IV ONE; -IOPAMIDOL 610MG/1ML 300 MG/ML VIAL IV ONE; -MIDAZOLAM HCL 2 MG/2 ML VIAL ONE
[2024-09-03] MEDS: LACTATED RINGER'S 1,000 ML ONE (06:04)
[2024-09-03] MEDS: GENTAMICIN 80MG/NS 100 ML 200 ML IV ONE (06:05)
[2024-09-03 07:55] VITALS: TEMP 97.6
[2024-09-03] MEDS: PHENAZOPYRIDINE HCL 100 MG TAB ONE (08:21)
[2024-09-03 08:50] VITALS: BP 130/70; PULSE 56; RESP 16; O2SAT 98
== END | disposition home or self-care (01) ==
LOC: OR 05:20
PROVIDERS: ATTEND Urology
DX: N39.41 Urge incontinence (principal); N35.812 Other bulbous urethral stricture, male; N39.0 Urinary tract infection, site not specified; N32.3 Diverticulum of bladder; N31.9 Neuromuscular dysfunction of bladder, unspecified; N40.0 Benign prostatic hyperplasia without lower urinary tract symptoms; N32.89 Other specified disorders of bladder; I10 Essential (primary) hypertension; K21.9 Gastro-esophageal reflux disease without esophagitis; F41.9 Anxiety disorder, unspecified; F32.A Depression, unspecified; Z01.810 Encounter for preprocedural cardiovascular examination; Z01.812 Encounter for preprocedural laboratory examination; Z79.1 Long term (current) use of non-steroidal anti-inflammatories (NSAID); Z79.899 Other long term (current) drug therapy
CPT/HCPCS: 36415; 52281; 74420; 80048; 85025; 93005; C1758; J0131; J0587; J1100; J1580; J2003; J2405; J2704; J3010; J7121

== ENCOUNTER → 2024-12-03 | Day surgery (SDC) | payer MEDICARE, OTHER ==
[2024-12-02 08:37] LABS: BASOPHILS % 0.6 % (0.0-1.0); EOSINOPHILS # (AUTO) 0.1 (0.0-0.4); EOSINOPHILS % 0.8 % (0.0-6.0); HEMATOCRIT 42.9 % (38.2-49.6); HEMOGLOBIN 14.3 g/dL (14.0-18.0); LYMPHOCYTES # (AUTO) 1.6 (1.0-3.2); LYMPHOCYTES % 25.2 % (18.0-39.1); MEAN CORPUSCULAR HEMOGLOBIN 29.5 pg (28-32); MEAN CORPUSCULAR HGB CONC 33.3 g/dL (31-35); MEAN CORPUSCULAR VOLUME 88.6 fL (81-99); MONOCYTES # (AUTO) 0.7 (0.2-0.8); MONOCYTES % 11.1 % (4.4-11.3); NEUTROPHILS # (AUTO) 3.8 (2.1-6.9); PLATELET COUNT 190 x10e3/uL (140-360); RED BLOOD COUNT 4.84 x10e6/uL (4.3-5.7); RED CELL DISTRIBUTION WIDTH 12.7 % (11.7-14.4); WHITE BLOOD COUNT 6.19 x10e3/uL (4.8-10.8)
[2024-12-02 09:06] LABS: ANION GAP 13.4 mmol/L (8-16); CREATININE, SERUM 0.93 mg/dL (0.72-1.25); POTASSIUM 4.4 mmol/L (3.5-5.1)
[~2024-12-03] MED LIST changes: -ACETAMINOPHEN 1000 MG/100 ML 100 ML IV ONE; +ASPIRIN81 MG PO; -LIDOCAINE HCL 2% LOCAL INJ 5 ML SDV VIAL INJ ONE; +MELOXICAM7.5 MG PO; +MIDAZOLAM HCL 2 MG/2 ML VIAL ONE
[2024-12-03] MEDS: SODIUM CHLORIDE 0.9% 1000ML 1,000 ML ONE (06:03)
[2024-12-03] MEDS: CEFTRIAXONE 1 GM VIAL ONE (06:03)
[2024-12-03 07:50] VITALS: TEMP 97.8
[2024-12-03] MEDS: PHENAZOPYRIDINE HCL 100 MG TAB ONE (08:31)
[2024-12-03 08:35] VITALS: BP 133/79; PULSE 52; RESP 16; O2SAT 98
== END | disposition home or self-care (01) ==
LOC: OR 05:38
PROVIDERS: ATTEND Urology
DX: N39.41 Urge incontinence (principal); N39.0 Urinary tract infection, site not specified; N31.9 Neuromuscular dysfunction of bladder, unspecified; N32.3 Diverticulum of bladder; N40.0 Benign prostatic hyperplasia without lower urinary tract symptoms; N32.89 Other specified disorders of bladder; D64.9 Anemia, unspecified; I10 Essential (primary) hypertension; K21.9 Gastro-esophageal reflux disease without esophagitis; K57.90 Diverticulosis of intestine, part unspecified, without perforation or abscess without bleeding; F41.9 Anxiety disorder, unspecified; F32.A Depression, unspecified; Z01.812 Encounter for preprocedural laboratory examination; Z79.82 Long term (current) use of aspirin; Z79.1 Long term (current) use of non-steroidal anti-inflammatories (NSAID); Z79.899 Other long term (current) drug therapy; Z86.73 Personal history of transient ischemic attack (TIA), and cerebral infarction without residual deficits
CPT/HCPCS: 36415; 74420; 80048; 85025; C1758; J0587; J0696; J1100; J2250; J2405; J7030

== ENCOUNTER → 2025-03-04 | Day surgery (SDC) | payer MEDICARE, OTHER ==
[2025-03-03 09:56] LABS: BASOPHILS % 0.4 % (0.0-1.0); EOSINOPHILS % 0.6 % (0.0-6.0); LYMPHOCYTES % 17.5 % (18.0-39.1); MONOCYTES % 10.0 % (4.4-11.3); NEUTROPHILS % 71.3 % (38.7-80.0); RED CELL DISTRIBUTION WIDTH 13.9 % (11.7-14.4)
[2025-03-03 10:17] LABS: EST GLOMERULAR FILTRATION RATE 103.0 ML/MIN (>=60)
[~2025-03-04] MED LIST changes: +ACETAMINOPHEN 1000 MG/100 ML 100 ML IV ONE; +CEFUROXIME250 MG PO; +EPHEDRINE SULFATE INJ 50 MG/ML VIAL ONE; +LIDOCAINE HCL 2% LOCAL INJ 5 ML SDV VIAL INJ ONE; -MIDAZOLAM HCL 2 MG/2 ML VIAL ONE; +OMEPRAZOLE40 MG PO
[2025-03-04] MEDS: GENTAMICIN 80MG/NS 100 ML 200 ML IV ONE (06:12)
[2025-03-04] MEDS: SODIUM CHLORIDE 0.9% 1000ML 1,000 ML ONE (06:16)
[2025-03-04 07:54] VITALS: TEMP 97.3
[2025-03-04 08:40] VITALS: BP 135/89; PULSE 65; RESP 15; O2SAT 99
== END | disposition home or self-care (01) ==
LOC: OR 05:35
PROVIDERS: ATTEND Urology
DX: N39.41 Urge incontinence (principal); N39.0 Urinary tract infection, site not specified; N35.912 Unspecified bulbous urethral stricture, male; N40.0 Benign prostatic hyperplasia without lower urinary tract symptoms; N32.89 Other specified disorders of bladder; N32.3 Diverticulum of bladder; A69.22 Other neurologic disorders in Lyme disease; I11.9 Hypertensive heart disease without heart failure; E78.2 Mixed hyperlipidemia; I07.1 Rheumatic tricuspid insufficiency; K21.9 Gastro-esophageal reflux disease without esophagitis; K57.90 Diverticulosis of intestine, part unspecified, without perforation or abscess without bleeding; Z98.84 Bariatric surgery status; F41.8 Other specified anxiety disorders; D64.9 Anemia, unspecified; Z86.73 Personal history of transient ischemic attack (TIA), and cerebral infarction without residual deficits; Z01.810 Encounter for preprocedural cardiovascular examination; Z01.812 Encounter for preprocedural laboratory examination; Z01.818 Encounter for other preprocedural examination; Z79.899 Other long term (current) drug therapy; Z79.82 Long term (current) use of aspirin
CPT/HCPCS: 36415; 52281; 71046; 74420; 80048; 85025; 93005; C1758; J0131; J0587; J1100; J1580; J2003; J2405; J2704; J3010; J7030